=== PATIENT | male | born 1980 | race Caucasian/White ===

== ENCOUNTER 2017-11-07 02:18 | Emergency (ER) | payer SELFPAY ==
[2017-11-07 02:21] VITALS: BP 151/109; PULSE 77; RESP 12; TEMP 36.3; O2SAT 97; BMI 27.3
[2017-11-07] MEDS: Ondansetron ODT 4 MG Tablet 8 MG PO (02:50)
--- NOTE | 2017-11-07 03:31 | ED.VISSUMM ---
- ER Visit Summary Date of Service: 11/07/17 Chief Complaint: Vomiting History of Present Illness: The patient is a 37 M presents for vomiting ?3 prior to arrival. No hematemesis. States been drinking all day with a friend. Increased drinking recently. No SI. States he just wants to feel better so he can sleep. No diarrhea. No fevers. Physical Examination: General: Alert, cooperative, intoxicated. HEENT: Normocephalic, atraumatic. Moist mucosa membranes Neck: supple, nontender. Cardiovascular: Regular rate and rhythm, no murmurs Respiratory: Normal breath sounds, symmetric, no distress Abdomen: Soft, nontender, nondistended Extremities: Nontender, no edema, pulses intact ?4 Neuro: no focal neurological deficits. Test Results: [] Emergency Department Course and Treatment: Patient vital signs stable. Treated oral Zofran. No emesis. Given take-home pack of Zofran. Discharged home with mother. Treatment Plan: [] Disposition: Discharge Impression: 1. Nausea and vomiting 2. Alcohol intoxication This note was generated with [employer] dictation software. It may contain incorrect words, spelling, and punctuation that were not noted in review of the chart prior to signing ED Disposition - Plan for ED Patient: Disposition: Home or Assisted Living Chief Complaint: ETOH Intox Diagnosis: etoh intoxication, Vomiting Instructions: ED Alcohol Intoxication, ED Diet Vomiting Diarrhea Referrals: Reynaldo August MD [Primary Care Provider] - 3-5 Days
[2017-11-07 03:34] VITALS: BP 113/80; PULSE 66; RESP 16; O2SAT 95
[2017-11-07 03:36] VITALS: BP 113/80; PULSE 64; RESP 15; O2SAT 96
[2017-11-07] MEDS: Ondansetron ODT 4 MG Tablet PO (03:37)
== END 2017-11-07 03:39 | disposition home or self-care (01) ==
PROVIDERS: Emergency Provider Emergency Medicine; Family Provider Family Medicine; PCP Family Medicine
DX: R11.2 Nausea with vomiting, unspecified (principal); F10.129 Alcohol abuse with intoxication, unspecified; Y90.9 Presence of alcohol in blood, level not specified; Z72.0 Tobacco use
CPT/HCPCS: 99282

== ENCOUNTER 2018-06-28 11:14 | Emergency (ER) | payer SELFPAY ==
[2018-06-28 11:14] VITALS: BP 165/108; PULSE 67; RESP 16; TEMP 36.6; O2SAT 98; BMI 26.9
--- NOTE | 2018-06-28 11:46 | ED.DCSUM_ITS ---
- ER Visit Summary Date of Service: 06/28/18 Chief Complaint: Nausea and vomiting History of Present Illness: The patient is a 37 M A on no medications. Patient states that last night he had a couple drinks of [place] and coke. Said he felt fine. Last night he started having nausea and vomiting. Worse today. Really denies abdominal pain. No hematemesis. No melena. No fever. No history of pancreatitis in the past. States he is never gotten sick like this before with drinking alcohol. He does not think it is related. He denies any dysuria. Physical Examination: Male vital signs are stable afebrile. He does not look septic or toxic. HEENT exam pupils round reactive light. No signs of trauma. No facial droop. He does have dry mucous membranes. Neck nontender. Lungs clear to auscultation bilaterally. Heart regular rhythm no murmur rate about 70. Chest wall nontender. Abdomen is soft. Nontender. Nondistended. Normal bowel sounds. No signs of obstruction. No right upper or right lower quadrant tenderness. Patient is moving all 4 extremities. Neurovascular intact. Calves are nontender without edema or cords. Neurologically is awake and alert with no focal motor or sensory deficits. Normal motor strength to both hands and feet. 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 Normal speech and conversation. Test Results: Lipase equals 105. Emergency Department Course and Treatment: Clinically I suspect this is a viral syndrome. Patient will be treated with a liter of normal saline and IV Zofran. We will see if he can hold down p.o. fluids. Post treatment with IV fluids and Zofran patient is doing much much better on repeat exam at 1338. His repeat abdominal exam is nontender. He states he feels much better. He is comfortable being discharged home. Treatment Plan: Plenty of fluids and rest. Zofran as needed for nausea. Follow-up with your doctor if not improving or return to the ER feeling worse. [place] diet increase slowly. No alcohol for the next 72 hours. Disposition: Discharge Impression: Acute nausea and vomiting secondary to viral syndrome Acute dehydration This note was generated with [employer] software. It may contain incorrect words, spelling, and punctuation that were not noted in review of the chart prior to signing ED Disposition - Plan for ED Patient: Disposition: Home or Assisted Living Chief Complaint: Nausea/Vomiting Instructions: ED Nausea Vomiting Prescriptions: Ondansetron [Zofran Odt] 4 mg PO Q4H PRN PRN #7 tab.rapdis PRN Reason: Nausea Referrals: Nolan Sneed, [Primary Care Provider] - Additional Instructions: Plenty fluids and rest. Zofran as needed for nausea. Return if unable to keep fluids down or feeling worse otherwise follow-up your primary care physician as needed.
[2018-06-28] MEDS: Ondansetron 4 MG/2 ML Vial IV (11:50)
[2018-06-28] MEDS: 0.9% Normal Saline 1,000 ML 1000 ML IV (11:50)
[2018-06-28 12:15] LABS: Lipase 105 U/L (73-393)
--- NOTE | 2018-06-28 13:53 | ED.DEP ---
ED Disposition - Plan for ED Patient: Disposition: Home or Assisted Living Chief Complaint: Nausea/Vomiting Instructions: ED Nausea Vomiting Prescriptions: Ondansetron [Zofran Odt] 4 mg PO Q4H PRN PRN #7 tab.rapdis PRN Reason: Nausea Referrals: Nolan Sneed DO [Primary Care Provider] - Additional Instructions: Plenty fluids and rest. Zofran as needed for nausea. Return if unable to keep fluids down or feeling worse otherwise follow-up your primary care physician as needed.
[2018-06-28 14:02] VITALS: BP 144/87; PULSE 63; RESP 16; O2SAT 97
--- OUTSIDE RECORDS SUMMARY | 2018-08-21 23:25 | XMS RPT_ITS ---
:1980 Author Organization OHIP Care Team Providers Name Role Phone Reynaldo August Primary Care Unavailable David Strong Attending Unavailable Toby Renteria Attending Unavailable RODNEY BETHEA Primary Care Unavailable SAM NEVAREZ Attending Unavailable SELF, SELF Referring Unavailable BRITNI ZAMUDIO Attending Unavailable Stminh Miles, Emergency [facility] Attending Unavailable Nolan Sneed Primary Care Unavailable PROBLEMS PROBLEMS DATE TYPE CONDITION / CODE ATTENDING STATUS SOURCE 05/06/2018 Admitting Unknown / Amanda Miles Active [facility] Medical diagnosis UNK(Unknown) [facility] Repository 04/21/2018 Admitting Contact with and ROBB Tet[facility] Discovery Diagnosis (suspected) BRITNI [place] [facility] ([place]) exposure to 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 / Z20.2(ICD-10) 04/21/2018 Admitting Exposure to STD / SAM NEVAREZ Active [facility] Diagnosis 189735() B System ([place]) Repository 04/21/2018 Admitting Other / 0() GERISAM CRUZ Active [facility] Diagnosis B [place] Repository PROCEDURES PROCEDURES No Procedure Records FoundRESULTS RESULTS DISCHARGE INSTRUCTION Observed: 06/28/2018 Status: F Source: EDNA 4:37 PM [facility] REPOSITORY [facility] Medical Records Department [address] [place] [address] Discharge Instruction 06/28/18 1353 MR#: [id number] Acct: [id number] Name: MARLO QUINTERO Rep #: [id number] : 1980 37 From: Toby Renteria MD PCP: Nolan Sneed DO Status: DEP ER ED Disposition - Plan for ED Patient: Disposition: Home or Assisted Living Chief Complaint: Nausea/Vomiting Instructions: ED Nausea Vomiting Prescriptions: Ondansetron [Zofran Odt] 4 mg PO Q4H PRN PRN #7 tab.rapdis PRN Reason: Nausea Referrals: Nolan Sneed DO [Primary Care Provider] - Additional Instructions: Plenty fluids and rest. Zofran as needed for nausea. Return if unable to keep fluids down or feeling worse otherwise follow-up your primary care physician as needed. What to do if you have Problems For any increased pain, shortness of breath, bleeding, nausea or vomiting, chest pain, or any unexpected problems, contact your Primary Care Provider. Call [employer] [facility] ([phone]) or report to the closest Emergency Room. Call 911 if necessary. 06/28/18 1637 <Electronically signed by Toby Renteria MD> Date Toby Renteria MD Cosigner Signature (If Indicated): Date CC: Nolan Sneed DO; OUT OF TOWN DOCTOR EMERGENCY DEPARTMENT Observed: 06/28/2018 Status: F Source: [place] SUMMARY 4:37 PM [facility] REPOSITORY [facility] Medical Records Department [address] [place] [address] Emergency Department Summary 06/28/18 1143 MR#: [id number] Acct: [id number] Name: MARLO QUINTERO Rep #: [id number] : 1980 37 From: Toby Renteria MD PCP: Nolan Sneed DO Status: DEP ER - ER Visit Summary Date of Service: 06/28/18 Chief Complaint: Nausea and vomiting History of Present Illness: The patient is a 37 M A on no medications. Patient states that last night he had a couple drinks of [place] [employer] and coke. Said he felt fine. Last night he started having nausea and vomiting. Worse today. Really denies abdominal pain. No hematemesis. No melena. No fever. No history of pancreatitis in the past. States he is never gotten sick like this before with drinking alcohol. He does not think it is related. He denies any dysuria. Physical Examination: Male vital signs are stable afebrile. He does not look septic or toxic. HEENT exam pupils round reactive light. No signs of trauma. No facial droop. He does have dry mucous membranes. Neck nontender. Lungs clear to auscultation bilaterally. Heart regular rhythm no murmur rate about 70. Chest wall nontender. Abdomen is soft. Nontender. Nondistended. Normal bowel sounds. No signs of obstruction. No right upper or right lower quadrant tenderness. Patient is moving all 4 extremities. Neurovascular intact. Calves are nontender without edema or cords. Neurologically is awake and alert with no focal motor or sensory deficits. Normal motor strength to both hands and feet. 5 out of 5 primary products inspectors strength. Normal speech and conversation. Test Results: Lipase equals 105. Emergency Department Course and Treatment: Clinically I suspect this is a viral syndrome. Patient will be treated with a liter of normal saline and IV Zofran. We will see if he can hold down p.o. fluids. Post treatment with IV fluids and Zofran patient is doing much much better on repeat exam at 1338. His repeat abdominal exam is nontender. He states he feels much better. He is comfortable being discharged home. Treatment Plan: Plenty of fluids and rest. Zofran as needed for nausea. Follow-up with your doctor if not improving or return to the ER feeling worse. Stanley diet increase slowly. No alcohol for the next 72 hours. Disposition: Discharge Impression: Acute nausea and vomiting secondary to viral syndrome Acute dehydration This note was generated with [employer] dictation software. It may contain incorrect words, spelling, and punctuation that were not noted in review of the chart prior to signing ED Disposition - Plan for ED Patient: Disposition: Home or Assisted Living Chief Complaint: Nausea/Vomiting Instructions: ED Nausea Vomiting Prescriptions: Ondansetron [Zofran Odt] 4 mg PO Q4H PRN PRN #7 tab.rapdis PRN Reason: Nausea Referrals: Nolan Sneed DO [Primary Care Provider] - Additional Instructions: Plenty fluids and rest. Zofran as needed for nausea. Return if unable to keep fluids down or feeling worse otherwise follow-up your primary care physician as needed. What to do if you have Problems For any increased pain, shortness of breath, bleeding, nausea or vomiting, chest pain, or any unexpected problems, contact your Primary Care Provider. Call [employer] [facility] ([phone]) or report to the closest Emergency Room. Call 911 if necessary. 06/28/18 0017 <Electronically signed by Toby Renteria MD> Date Toby Renteria MD Cosigner Signature (If Indicated): Date CC: Nolan Sneed DO; OUT OF TOWN DOCTOR DISCHARGE INSTRUCTION Observed: 06/28/2018 Status: F Source: [place] 4:37 PM [facility] REPOSITORY [facility] Medical Records Department [address] [place] [address] [place] [address] Discharge Instruction 06/28/18 1146 MR#: [id number] Acct: [id number] Name: MARLO QUINTERO LISSY Rep #: [id number] : 1980 37 From: Toby Renteria MD PCP: Nolan Sneed DO Status: DEP ER ED Disposition - Plan for ED Patient: Disposition: Home or Assisted Living Chief Complaint: Nausea/Vomiting Instructions: ED Nausea Vomiting Prescriptions: Ondansetron [Zofran Odt] 4 mg PO Q4H PRN PRN #7 tab.rapdis PRN Reason: Nausea Referrals: Nolan Snede DO [Primary Care Provider] - Additional Instructions: Plenty fluids and rest. Zofran as needed for nausea. Return if unable to keep fluids down or feeling worse otherwise follow-up your primary care physician as needed. What to do if you have Problems For any increased pain, shortness of breath, bleeding, nausea or vomiting, chest pain, or any unexpected problems, contact your Primary Care Provider. Call [facility] ([phone]) or report to the closest Emergency Room. Call 911 if necessary. 06/28/18 4877 <Electronically signed by Toby Renteria MD> Date Toby Renteria MD Cosigner Signature (If Indicated): Date CC: Nolan Sneed DO; OUT OF TOWN DOCTOR LIPASE Collected: 06/28/2018 Status: F Source: [place] 11:50 AM [facility] REPOSITORY TYPE CODE TESTS RESULT OUT OF RANGE REFERENCE UNITS LAB L501.2450 73-393 U/L Normal LIPASE 105 Performed By: #### L501.2450 #### [facility] [address] [place], [address] ED DOC Observed: 05/06/2018 Status: UNK Source: [facility] 1:03 PM [facility] This is a preliminary report only, as the practitioner review and authentication has not occurred. ED DOC Observed: 05/06/2018 Status: UNK Source: [facility] 1:03 PM [facility] REPOSITORY PHYSICIAN ASSESSMENT RECORDS : FlexChartData Event Time: 05/06/2018 11:55 Status: Signed [facility] Marlo Quintero [[id number]] Attending Physician 37 / / 1980 Chart (V2b) Chart created at 05/06/2018 11:47 by Ciro Hanna Chart closed at 05/06/2018 12:38 Entry in Emergency Department at 05/06/2018 10:19, departure at 05/06/2018 13:03 Patient Name: Marlo Quintero Record Number: [id number] Date: 05/06/2018 11:47 Entered Department at: 05/06/2018 10:19 Patient Seen at: 05/06/2018 11:17 Historian: Patient PCP: DR. SNEED Chief Complaint:C/O EPIGASTRIC PAIN AND PALPITATIONS SINCE FRIDAY. Triage Note reviewed and Initial Vital Signs reviewed. Temperature: 97.6 F (36.4 C). Pulse: 74. Respiratory Rate: 18. Blood-pressure: 162/110. Oxygen Saturation: 98%. History of Present Illness: 37-Year-old male presents with complaints of left upper quadrant, midepigastric discomfort. According to patient he has been having mild achiness in that region ongoing for the past couple weeks. He has had several episodes of worsening severe discomfort. While he was having these severe episodes he felt quivering in his mid epigastric region going up into his [facility] PATIENT NAME: MARLO QUINTERO [address] [facility] [address] MEDICAL REC #: [id number] [place] [id number] EMERGENCY DEPARTMENT CHART EMERGENCY DEPARTMENT PHYSICIAN chest. Since he is never had problems like this in the past he came in for evaluation. He is not having any severe pain at this time. He has had no other nausea or vomiting. He has had radiation of the discomfort going to his chest but nothing to his arm. No other shortness of breath or difficulty breathing. He was not lightheaded, dizzy or weak. He has not tried using anything help alleviate discomfort. He has not seen a physician for this problem yet. Cannot recall anything that makes the discomfort worse. States it gets worse on its own and then was eases up over a couple minutes. He has seen no blood in his stools or dark tarry stools. Denied any urinary symptoms. Review of Systems. Constitutional: negative for Chills or Fever Eyes: negative for Eye Pain Ear/Nose/Throat: negative for Earache, Congestion or Sore Throat Cardio-Vascular: negative for Palpitations Skin: negative for Rash Respiratory: negative for Cough or Dyspnea GI: as noted in the HPI : negative for Dysuria, Frequency or Urgency Musculo-Skeletal: negative for Back Pain or Neck Pain Neurological: negative for Headache, Numbness or Weakness Psychological: negative for Stress Hem/Endo: negative for Bleeding, Polyuria or Bruising Immunology: negative for Joint Pain Past History, Medications, Allergies, Social History and Family History reviewed in nurses note. Medications: Reviewed RN Note. Allergies: Reviewed RN Note No Known Allergies Social History: Reviewed RN Note. Tobacco: Smoking, Every day, 1 per day. Alcohol: Moderate. Recreational Drugs: None. Family History: Reviewed RN Note Physical Examination: General: Alert and Well Developed; Well-developed, well-nourished male. He is awake and alert to person, place and time. Vital signs and [facility] PATIENT NAME: MARLO QUINTERO [facility] [address] MEDICAL REC #: [id number] [place] [address] EMERGENCY DEPARTMENT CHART EMERGENCY DEPARTMENT PHYSICIAN I interpret were stable blood pressure 162 systolic. Pulse rate 74. Respiratory rate 18. 98% saturation on room air. Temperature is 97.6. HEENT: Normal ENT inspection. Head: Atraumatic. Eyes: Lids Normal; PERRL; EOMI. Ear: Normal auricle, Normal external aud. canal, Normal Tympanic Membranes. Nose: Normal inspection, Normal mucose. Oropharynx / Throat: Normal Pharynx, Moist mucous membranes. Sclera nonicteric.. Neck: No Lymphadenopathy and Supple Respiratory: No Resp Distress and Normal Breath Sounds Cardio-Vascular: No murmur and RRR Abdomen: Mild discomfort noted to the midepigastric and left upper quadrant. No other rebound or guarding. There is no masses noted. Bowel sounds are normal and active. Clinically, he did not have a surgical abdomen. Back: No CVA tenderness and Non-tender Extremity: No edema and Normal Equal pulses; pulses equal upper/ lower extremities. equal left and right sides. Full range of motion of all joints. No deformities were noted. No cyanosis, clubbing or edema noted. Neurological: Alert, Oriented X3, Normal Sensation, No Gross Weakness, Speech Normal, Normal DTRs and 5/5 UE/LE Strength Skin: No rash, No Petechiae, Warm and Dry Psychological: Mood/Affect Normal and Normal Memory/Judgment BMP, information as of 05/06/2018, 10:28 am 138 --------+--------+--------andlt; 101* Anion Gap = 8 3.8 BUN/CREA: 13; CALCIUM TOTAL: 9.0 Mg/Dl CBC W/DIFF, information as of 05/06/2018, 10:32 am 91.2 / 16.7 / 8.8 andgt;------andlt; 204 / 47.5 / N:66.8 BASO ABS: 0.00 K/Cu Mm; BASOPHIL %: 0.5 %; EOS ABS: 0.10 K/Cu Mm; EOSINOPHIL %: 1.4 %; IMMATR GRAN ABS: 0.10 K/Cu Mm; IMMATURE GRAN %: 1.0 %; LYMPH %: 21.7 %; LYMPH ABS: 1.90 K/Cu Mm; MCHC: 35.2 Gm/Dl; MONO ABS: 0.80 K/Cu Mm; MONOCYTE %: 8.6 %; MPV: 10.2; NEUTROPHIL ABS: 5.90 K/Cu Mm; NRBC: 0.0 %; RBC: 5.21 M/Cu Mm; RDW: 11.6 [facility] PATIENT NAME: MARLO QUINTERO E [address] [facility] [address] MEDICAL REC #: [id number] [place] [address] EMERGENCY DEPARTMENT CHART EMERGENCY DEPARTMENT PHYSICIAN TROPONIN I POC, information as of 05/06/2018, 10:36 am POC Trop-I: 0.00 LIPASE, information as of 05/06/2018, 10:32 am LIPASE: 123 U/L LIVER, information as of 05/06/2018, 10:32 am A/G RATIO: 1.1; ALBUMIN: 3.9 Gm/Dl; ALK PHOS: 77 U/L; BILI DIRECT: 0.18 Mg/Dl; BILI TOTAL: 0.8 Mg/Dl; GLOBULIN: 3.6 Gm/Dl; SGOT (AST): 16 U/L; SGPT (ALT): 22 Iu/L; TP: 7.5 Gm/Dl Cardiogram: Interpreted by me. Interpretation: EKG that I interpret it shows a sinus rhythm without acute ST elevation or depression. There is no prolongation of MI interval or QRS complex. No old EKGs available for comparison Comparison: No old Cardiogram available for comparison Medical Decision Making On workup, EKG shows no acute changes with a troponin at 0. White count 8.8 with an Handamp;H of 16 and 47 and platelet count 204. Lipase is at 123 with a liver enzymes unremarkable. Sodium was at 138 with a potassium 3.8. Chloride was 105 with a CO2 of 25. BUN of 13 with a creatinine 1.03 and a glucose of 101. Patient was medicated with Pepcid as well as a Grasshopper. On reexam, patient states that his symptoms are doing better. Patient states that he has been taking doxycycline for exposure to chlamydia. Although the medication is not the underlying cause of his symptoms I do feel it is contributing to his problem. Patient will be taken off the doxycycline and given treatment here with both ceftriaxone as well as Zithromax. Patient will be discharged home, I will place him on omeprazole. He is advised about dietary restrictions. Patient will require further outpatient testing and is being referred to gastroenterology for follow-up. Advised to return for worsening symptoms. Patient discharged home stable condition [facility] PATIENT NAME: MARLO QUINTEROgracia Mcbride MEDICAL REC #: [id number] [place] [address] EMERGENCY DEPARTMENT CHART EMERGENCY DEPARTMENT PHYSICIAN Additional Information: Discussed Results, Diagnosis and Follow-Up with Patient. Prescription given (Omeprazole). Clinical Impression: 1. Abdominal pain-cause to be determined 2. Partially treated chlamydia infection Disposition: Discharged *Home. Condition: Stable MSE completed. I was the primary ED attending.. : Discharge Report Event Time: 05/06/2018 12:39 ===DISCHARGE REPORT=== : FlexChartData Event Time: 05/06/2018 11:55 : Discharge Report Event Time: 05/06/2018 12:39 Status: Draft Reasons to Return to the ER: You must return to the ER for any new, worsening or changing symptoms, or if you feel more ill or sick in any way. This is the most important thing to remember. Follow-up: The care you received in the ER was given on an emergency basis only, and it is often not possible to completely treat or diagnose a problem in a single ER visit. You must see your follow-up doctor for a recheck within a week unless you receive instructions with a different timeframe for follow-up. Please follow all your discharge instructions. Medications: [facility] PATIENT NAME: MARLO QUINTERO [address] MEDICAL REC #: [id number] [place] [address] EMERGENCY DEPARTMENT CHART EMERGENCY DEPARTMENT PHYSICIAN Unless the ER doctor tells you differently, you should take all your regular medications and any new medications prescribed today. Because it is not possible for the ER doctor to review all of your medication side effects or interactions, you must review possible side effects and interactions with your pharmacist when you get your prescriptions filled. EKG and Radiology Results: A tape coater or radiologist will review any EKG or radiology results provided by the ER doctor. We will contact you if the results in the final EKG or radiology reports require a change in treatment. Culture Results: Cultures may have been ordered during your ER visit. We will contact you if the culture results require a change in treatment. Referrals: Most referrals to specialists come from the on-call list You should make your regular doctor aware of any referrals before you schedule the appointment so that they are aware and can make suggestions DIAGNOSIS: Abdominal pain-cause to be determined, Partially treated chlamydia infection INSTRUCTIONS: Avoid spicy foods, alcohol, caffeine, nicotine, aspirin/anti-inflammatories. You stomach medication as directed. Follow-up with assessment expert for further outpatient treatment. Return for worsening symptoms. UNLESS THE ER DOCTOR GIVES YOU OTHER INSTRUCTIONS, YOU MUST SEE YOUR FOLLOW-UP DOCTOR WITHIN [address] [facility] PATIENT NAME: MARLO QUINTERO [address] [facility] [address] MEDICAL REC #: [id number] [place] [address] EMERGENCY DEPARTMENT CHART EMERGENCY DEPARTMENT PHYSICIAN YOU MUST RETURN TO THE ER RIGHT AWAY FOR ANY OF THE FOLLOWING:Increasing painChange in the location of the painNew or increasing fever or chillsNew or increasing constipation or difficulty urinatingNew or increasing abdominal swelling or bloatingBlood appears in the stool, vomit or urineNew or increasing vomiting or diarrhea.New or increasing weakness or dizzinessEarly appendix infection is always a possibility and you must return if the pain moves to the lower right side of your abdomen REFERRAL Suze Garcia MD (Gastroenterology), , fax: Please call the above number to schedule a follow-up appointment. Alena ([facility]) , Address: [address] [place] [address] [place] [address], , fax: Please call the above number to schedule a follow-up appointment. 2-3 days MEDICATIONS We have given you these prescriptions that you must fill and start taking: Prilosec 20 mg capsule,delayed release, count:21, Dose =1 tab, count:21,21 days, count:21, daily, count:21 COMMENTS: Patient Satisfaction: Within the first few days after your visit, you will receive an email and/or phone call regarding your visit. We value your feedback, and would appreciate it if you would take the time to complete this short survey. If you receive a call, it will be between 6p and 8p. [facility] PATIENT NAME: MARLO QUINTERO [address] MEDICAL REC #: [id number] [place] [id number] EMERGENCY DEPARTMENT CHART EMERGENCY DEPARTMENT PHYSICIAN My signature below indicates that I have received and understand the oral instructions regarding my medical problem. I also acknowledge receipt of this written instruction sheet including a list of major tests and procedures ordered during my visit. I will arrange for follow-up care as indicated by these instructions and referrals. This signed original will be kept in my medical record. Your signature below indicates consent for Case Management to contact [facility] in an effort to meet your ongoing healthcare needs. This will allow forcontinuity of care once you leave the Emergency Department. This exchange of informationwill include, but not be limited to, disclosure of your patient information and possible release of records. [employer] Patient: MARLO QUINTERO Sex: M : 1980 Age: 37 yr Account No: [id number] Registration Date: :05/06/2018 Address: [address] [place] [address] Address: [place] [address] REGISTRATION ED Number: [id number] Marital Status: X Financial Class: SELF TRIAGE Priority: 3 - Urgent Complaint: Palpitations Complaint: Epigastric Pain Stated Complaint: C/O EPIGASTRIC PAIN AND PALPITATIONS SINCE FRIDAY. [facility] PATIENT NAME: MARLO QUINTERO [address] [facility] [address] MEDICAL REC #: [id number] [place] [address] EMERGENCY DEPARTMENT CHART EMERGENCY DEPARTMENT PHYSICIAN Arrival Date: 05/06/2018 10:19 Triage Date: 05/06/2018 10:21 Mode of Arrival: *Privately Owned Vehicle WC: N Language: Lao Transport: Ambulatory/Walk In BED C27 In: 05/06/2018 11:07:23 05/06/2018 11:07:23 ARM C27 (Removed From) Out: 05/06/2018 13:03:54 05/06/2018 13:03:54 MCS PROVIDERS MD Ciro Belleza Provider Contact: 05/06/2018 11:16:53 CHASITY End: SELAM BANEGAS Provider Contact: 05/06/2018 11:25:49 MCS End: TRIAGE HISTORY ALLERGIES Allergic To: No Known Allergies 05/06/2018 10:27 ARM CURRENT MEDS Name: None 05/06/2018 12:45 MCS ILLNESS Illness: HOCM 05/06/2018 10:27 ARM PAST SURGERY HIST Surgery: BRAIN -REMOVAL OF BLOOD CLOT FROM TRAUMA 05/06/2018 10:27 ARM PAST SOCIAL HIST [facility] PATIENT NAME: MARLO QUINTERO [address] [facility] [address] MEDICAL REC #: [id number] [place] [address] EMERGENCY DEPARTMENT CHART EMERGENCY DEPARTMENT PHYSICIAN Social History: Lives alone 05/06/2018 10:27 ARM Social History: Recreational Drugs - None 05/06/2018 10:27 ARM Social History: Smoker-1 PPD 05/06/2018 10:27 ARM Social History: Alcohol - Frequent-4 BEERS /day 05/06/2018 10:27 ARM Social History: Denies Domestic Violence 05/06/2018 10:27 ARM Social History: Denies thoughts of self harm. 05/06/2018 10:27 ARM Social History: Have you traveled in the past month? Where DENIES 05/06/2018 10:27 ARM IMMUNIZATIONS Immunization: Flu Vaccine-no 05/06/2018 12:45 MCS Immunization: Pneumonia Vaccine-no 05/06/2018 12:45 MCS NURSING ASSESSMENT ASSESSMENT NOTES 05/06/2018 10:49 SEE TRIAGTE NOTE. MSPSINTACT. C/O LEFT SIDED CHEST DISCOMFORT,EPIGASTRIC REGION,WHICH STARTED OPN SUDNAY. PT STATING INCREASE IN DISCOMFORT AFTER EATING. LUNGS CT.A BSX4 A BD SOFT NONTENDER OT PALP. SKIN WARM PINKLN DRY CAP REFILL andlt;2 SECS. 05/06/2018 13:00 MCS TREATMENT 05/06/2018 11:00 Staff/ Patient Interaction - Side rails up X2 and call light placed within reach. 05/06/2018 13:01 MCS 05/06/2018 11:00 Staff/ Patient Interaction - Call [facility] PATIENT NAME: MARLO QUINTERO [address] [facility] [address] MEDICAL REC #: [id number] [place] [address] EMERGENCY DEPARTMENT CHART EMERGENCY DEPARTMENT PHYSICIAN light placed within reach. 05/06/2018 13:01 MCS 05/06/2018 11:10 Patient Interaction - Mail Superintendent/ Pulse ox/ BP cuff applied 05/06/2018 13:01 MCS 05/06/2018 11:10 Primary DOC Guide - D. Psychosocial Assessment 05/06/2018 13:01 [place] Over the Last 2 weeks, how often have you had little interest or pleasure in doing things (0) Not at All Is Psychosocial Assessment Score 3 or more? If score is 3 or more please consult ED Navigator! No Total Psychosocial Assessment Score 0 Over the last 2 weeks, how often have you been feeling down, depressed or hopeless (0) Not at All 05/06/2018 11:10 Patient Interaction - Name Band on Pt 05/06/2018 13:01 [place] 05/06/2018 11:10 Staff/ Patient Interaction - Introduced self and assessed patients needs. 05/06/2018 13:01 [place] 05/06/2018 11:20 Primary DOC Guide - A. 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 TB Screening - Persistent Cough More Than 3 Weeks No TB Screening - Night Sweats No TB Screening All Negative Latex Allergy Screen All Negative Travel History - Traveled outside of the state in the last 30 days No Travel History - Had contact with a person who has traveled outside the state in the last 30 days No 05/06/2018 11:59 POC testing results and critical values - POC Troponin 0.00 on ED instrument 05/06/2018 11:59 SPY 05/06/2018 13:01 Admit/Discharge - *Discharge instructions/tests andamp; procedures/med list reviewed and provided; prescriptions given to caregiver 05/06/2018 13:[address] [facility] PATIENT NAME: MARLO QUINTERO [address] [place] MEDICAL REC #: [id number] [place] [address] EMERGENCY DEPARTMENT CHART EMERGENCY DEPARTMENT PHYSICIAN 05/06/2018 13:01 Admit/Discharge - Ambulated with steady gait home 05/06/2018 13:01 MCS 05/06/2018 13:01 Admit/Discharge - Discharge information reviewed with family 05/06/2018 13:01 [place] 05/06/2018 13:01 Admit/Discharge - Discharge prescriptions given to patient 05/06/2018 13:01 MCS MEDICATIONS IV IV Fluid: B 05/06/2018 11:20 05/06/2018 13:03 MCS Line #: 1 Fluid: Saline Lock Rate: ml/hr Location: antecubital fossa left Ndl Gauge: 20 # Attempts: 1 IV Fluid: E 05/06/2018 13:03 05/06/2018 13:03 MCS Line #: 1 Rate: ml/hr Location: antecubital fossa left Ndl Gauge: 20 # Attempts: 1 Notes: IV CATH REMOVEDINTAC.T I AND O VITALS VS-ROUTINE Time: 05/06/2018 10:21 B/P: 162/110 - Left Upper Arm - Lying - Machine Pulse: 74 - Monitor Resp: 18 Sa02: 98 Room Air Temp: 97.60 F - Oral 05/06/2018 10:27 ARM VS-Pain Time: 05/06/2018 10:21 Pain Level: 4 05/06/2018 10:27 ARM VS-GCS Time: 05/06/2018 10:21 Visual: 4 Verbal: 5 Motor: 6 GCS Total: 15 05/06/2018 10:27 ARM VS-HT/WT Time: 05/06/2018 10:21 Ht: 177.[address] [facility] PATIENT NAME: MARLO QUINTERO [address] [place] MEDICAL REC #: [id number] [place] [address] EMERGENCY DEPARTMENT CHART EMERGENCY DEPARTMENT PHYSICIAN Weight: 81.7 kg Stated 05/06/2018 10:27 ARM VS-Visual Time: 05/06/2018 10:21 05/06/2018 10:27 ARM VS-FHT Time: 05/06/2018 10:21 05/06/2018 10:27 ARM VS-Notes Time: 05/06/2018 10:21 MAP 132 05/06/2018 10:27 ARM VS-ROUTINE Time: 05/06/2018 12:44 B/P: 133/85 - Left Upper Arm - - Machine Pulse: 60 - Mail Superintendent Resp: 18 Sa02: 99 Room Air 05/06/2018 12:44 MCS VS-Pain Time: 05/06/2018 12:44 Pain Level: 0 05/06/2018 12:44 MCS VS-GCS Time: 05/06/2018 12:44 Visual: 4 Verbal: 5 Motor: 6 GCS Total: 15 05/06/2018 12:44 MCS VS-HT/WT Time: 05/06/2018 12:44 05/06/2018 12:44 MCS VS-Visual Time: 05/06/2018 12:44 05/06/2018 12:44 MCS VS-FHT Time: 05/06/2018 12:44 05/06/2018 12:44 MCS VS-Notes Time: 05/06/2018 12:44 MAP 104 05/06/2018 12:44 MCS ORDERS Discharge patient 05/06/2018 12:42 N/A Ordered: 05/06/2018 12:39 By . Other Reviewed: 05/06/2018 12:42 By . Other Rocephin (IM)(250mg) DOSE: 250 mg IM 05/06/2018 12:58 N/A Ordered: 05/06/2018 12:35 By Ciro Hanna Completed Time: 05/06/2018 12:58 By Ciro Hanna Noted Time: 05/06/2018 12:44 MCS Zithromax (PO)*(250mg) DOSE: 1000 mg PO 05/06/2018 12:58 N/A Ordered: 05/06/2018 12:35 By Ciro Hanna Completed Time: 05/06/2018 12:58 By Ciro Hanna Noted Time: 05/06/2018 12:44 MCS RABBIT BREEDER ORDER: LIVER 05/06/2018 12:[address] [facility] PATIENT NAME: MARLO QUINTERO [address] [place] MEDICAL REC #: [id number] [place] [address] EMERGENCY DEPARTMENT CHART EMERGENCY DEPARTMENT PHYSICIAN Ordered: 05/06/2018 12:13 Completed Time: 05/06/2018 12:13 Results Time: 05/06/2018 12:13 RABBIT BREEDER ORDER: LIPA 05/06/2018 12:13 None Ordered: 05/06/2018 12:13 Completed Time: 05/06/2018 12:13 Results Time: 05/06/2018 12:13 Grasshopper (PO)* DOSE: 60 ml PO 05/06/2018 12:31 N/A Ordered: 05/06/2018 11:38 By Ciro Hanna Completed Time: 05/06/2018 12:30 By Ciro Hanna Noted Time: 05/06/2018 12:16 MCS Pepcid (IV)(20mg/2ml) DOSE: 20 mg IV 05/06/2018 12:31 N/A Ordered: 05/06/2018 11:38 By Ciro Hanna Completed Time: 05/06/2018 12:30 By Ciro Hanna Noted Time: 05/06/2018 12:16 MCS Lab: Add On Test (excluding POC tests) 05/06/2018 12:31 N/A Ordered: 05/06/2018 11:38 By Ciro Hanna Completed Time: 05/06/2018 12:30 By Ciro Hanna Question: Test to be added: Answer: liver panel, lipase RABBIT BREEDER ORDER: GFRP 05/06/2018 10:57 None Ordered: 05/06/2018 10:57 Completed Time: 05/06/2018 10:57 Results Time: 05/06/2018 12:13 RABBIT BREEDER ORDER: POCTROP 05/06/2018 10:52 None Ordered: 05/06/2018 10:52 Completed Time: 05/06/2018 10:52 Results Time: 05/06/2018 10:51 EKG and most recent EKG 05/06/2018 10:33 N/A Ordered: 05/06/2018 10:27 By Protocol Completed Time: 05/06/2018 10:23 By Protocol Noted Time: 05/06/2018 10:[address] [facility] PATIENT NAME: MARLO QUINTERO [address] [place] MEDICAL REC #: [id number] [place] [address] EMERGENCY DEPARTMENT CHART EMERGENCY DEPARTMENT PHYSICIAN O2 by cannula at 2L if SAT andlt;= 91% 05/06/2018 11:15 N/A Ordered: 05/06/2018 10:27 By Protocol Completed Time: 05/06/2018 11:15 By Protocol POC troponin 05/06/2018 12:01 N/A Ordered: 05/06/2018 10:27 By Protocol Completed Time: 05/06/2018 10:50 By Protocol Noted Time: 05/06/2018 10:33 SOILA BMP 05/06/2018 10:57 N/A Ordered: 05/06/2018 10:27 By Protocol Completed Time: 05/06/2018 10:57 By Protocol Noted Time: 05/06/2018 10:33 SOILA Results Time: 05/06/2018 12:13 CBC with diff 05/06/2018 10:46 N/A Ordered: 05/06/2018 10:27 By Protocol Completed Time: 05/06/2018 10:46 By Protocol Noted Time: 05/06/2018 10:33 SOILA Results Time: 05/06/2018 11:51 DISCHARGE Diagnosis: Abdominal pain-cause to be determined, Partially treated chlamydia infection 05/06/2018 12:39 Disposition: Time: 05/06/2018 12:39 Discharge Time: 05/06/2018 13:03 Type: Discharge Condition: Stable for admission/discharge/transfer after emergency evaluation/treatment Category: *NOT APPLICABLE Referral: 05/06/2018 12:39 Admit Physician: . Other PRESCRIPTIONS Prilosec 20 mg capsule,delayed release 05/06/2018 12:39 SI ta qd for 21 days Dispense: 21 / Refills: [facility] PATIENT NAME: MARLO QUINTERO [address] [place] MEDICAL REC #: [id number] [place] [address] EMERGENCY DEPARTMENT CHART EMERGENCY DEPARTMENT PHYSICIAN CHARGES SIGNATURE Ciro GORDON [facility] PATIENT NAME: MARLO QUINTERO [facility] [address] [place] MEDICAL REC #: [id number] [place] [address] EMERGENCY DEPARTMENT CHART EMERGENCY DEPARTMENT PHYSICIAN EKG Observed: 05/06/2018 Status: UNK Source: [facility] 12:06 PM [facility] REPOSITORY Procedure Date and Time: 05/06/18 1023 Test Reason : STAT Blood Pressure : / mmHG Vent. Rate : 069 BPM Atrial Rate : 069 BPM P-R Int : 136 ms QRS Dur : 086 ms QT Int : 398 ms P-R-T Axes : 043 054 005 degrees QTc Int : 426 ms Normal sinus rhythm Normal ECG No previous ECGs available Confirmed by SCOTT BRADLEY A. ([id number]) on 05/06/2018 11:12:34 PM Referred By: Emergency Stk Cnty Confirmed By:Mallika BRADLEY M.D.FACC Moris DDandT: 05/06/18 1023 TDandT: [facility] PATIENT NAME: MARLO QUINTERO [facility] [address] [place] MEDICAL REC #: [id number] [place] [address] ADMIT DATE: DISCHARGE DATE: 05/06/18 ATTENDING PHY: Ciro Hanna MD ELECTROCARDIOGRAM REPORT CLB cc: [facility] PATIENT NAME: MARLO QUINTERO [facility] [address] [place] MEDICAL REC #: [id number] [place] [address] ADMIT DATE: DISCHARGE DATE: 05/06/18 ATTENDING PHY: Ciro Hanna MD ELECTROCARDIOGRAM REPORT TROPONIN I POC Collected: 05/06/2018 Status: F Source: [facility] 10:36 AM [facility] REPOSITORY TYPE CODE TESTS RESULT OUT OF RANGE REFERENCE UNITS LAB L550.69662 0.0-0.06 NG/ML Normal TROPONIN I POC 0.00 Result Comment: 0.0 - 0.06 NG/ML - NON- DIAGNOSTIC (REFERENCE RANGE) 0.07 - 0.59 NG/ML - INDETERMINATE Greater than or equal to 0.6 NG/ML - INDICATIVE OF MYOCARDIAL DAMAGE CBC W/DIFF Collected: 05/06/2018 Status: F Source: [facility] 10:32 AM [facility] REPOSITORY Order Comment: [place]: TYPE CODE TESTS RESULT OUT OF RANGE REFERENCE UNITS LAB L200.05177 4.5-11.0 K/CU MM WBC Normal 8.8 LAB L200.63067 4.50-6.00 M/CU MM RBC Normal 5.21 LAB L200.92533 13.5-17.5 G/DL HGB Normal 16.7 LAB L200.11016 41.0-53.0 % HCT Normal 47.5 LAB L200.31348 80.0-99.0 fl MCV Normal 91.2 LAB L200.54622 32.0-36.0 GM/DL MCHC Normal 35.2 LAB L200.66721 11-14.5 RDW Normal 11.6 LAB L200.16101 9.4-12.4 MPV Normal 10.2 LAB L200.88582 150-450 K/CU MM PLT Normal 204 LAB L200.91085 45-75 % NEUTROPHILS Normal % 66.8 LAB L200.84922 Less than 2 % IMMATURE Normal GRAN % 1.0 LAB L200.62211 20-40 % LYMPH % Normal 21.7 LAB L200.15221 2-10 % MONOCYTE % Normal 8.6 LAB L200.52623 0-5 % EOSINOPHIL Normal % 1.4 LAB L200.66811 0-2 % BASOPHIL % Normal 0.5 LAB L200.48170 2.0-8.3 K/CU MM NEUTROPHIL Normal ABS 5.90 LAB L200.14198 Less than 2 K/CU MM IMMATR GRAN Normal ABS 0.10 LAB L200.85707 0.9-4.4 K/CU MM LYMPH ABS Normal 1.90 LAB L200.87943 0.1-1.1 K/CU MM MONO ABS Normal 0.80 LAB L200.80570 0-0.5 K/CU MM EOS ABS Normal 0.10 LAB L200.59640 0-0.2 K/CU MM BASO ABS Normal 0.00 LAB L200.72287 Less than 1 % NRBC Normal 0.0 Performed By: #### L200.90489 #### [facility] [address] [place] [address] BMP Collected: 05/06/2018 Status: F Source: [facility] 10:32 AM [facility] REPOSITORY Order Comment: [place]: M TYPE CODE TESTS RESULT OUT OF RANGE REFERENCE UNITS LAB L500.61829 136-145 MMOL/L Normal NA 138 LAB L500.84383 3.5-5.1 MMOL/L Normal K 3.8 LAB L500.25451 98-107 MMOL/L Normal CL 105 LAB L500.64506 21-32 MMOL/L Normal CO2 25 LAB L500.88354 5-16 MMOL/L Normal AGAP 8 LAB L500.66478 70-100 MG/DL High GLU 101 Result Comment: 70-100- Normal Fasting; 100-125 Impaired Fasting; greater than 126 on more than one result- Diabetes. ADA guidelines. Results may be falsely elevated after the administration of Sulfapyridine. Results may be falsely depressed after the administration of Sulfasalazine. LAB L500.19766 7-26 MG/DL Normal BUN 13 LAB L500.79283 0.670-1.170 MG/DL Normal CREAT 1.030 Result Comment: Patients receiving either N-Acetylcysteine (NAC) or Metamizole prior to venipuncture, may have falsely depressed results. LAB L500.61423 15-24 Low BUN/CREA 13 LAB L500.36920 8.5-10.1 MG/DL Normal CALCIUM TOTAL 9.0 Performed By: #### L500.81547, L500.41564, L500.55794, L500.72377 #### [facility] [address] [place] [address] GFR EST Collected: 05/06/2018 Status: F Source: [facility] 10:32 AM [facility] REPOSITORY Order Comment: [place]: M TYPE CODE TESTS RESULT OUT OF RANGE REFERENCE UNITS LAB L500.95133 ML/MIN Normal IF non-AFR Greater than AMER 60 LAB L500.75622 ML/MIN Normal IF Greater than AMER 60 Performed By: #### L500.20541, L500.56801, L500.04106, L500.06171 #### [facility] [address] [place] [address] LIVER Collected: 05/06/2018 Status: F Source: [facility] 10:32 AM [facility] REPOSITORY Order Comment: [place]: M TYPE CODE TESTS RESULT OUT OF RANGE REFERENCE UNITS LAB L500.13772 6.0-8.5 GM/DL TP Normal 7.5 LAB L500.73870 3.2-5.0 GM/DL Normal ALBUMIN 3.9 LAB L500.44609 2.2-4.2 GM/DL Normal GLOBULIN 3.6 LAB L500.76348 0.8-2.0 Normal A/G RATIO 1.1 LAB L500.76911 0.2-1.0 MG/DL Normal BILI TOTAL 0.8 LAB L500.17696 0.00-0.20 MG/DL Normal BILI DIRECT 0.18 LAB L500.48935 8-34 U/L Normal SGOT (AST) 16 Result Comment: RESULTS MAY BE FALSELY DEPRESSED AFTER THE ADMINISTRATION OF SULFASALAZINE AND/OR SULFAPYRIDINE. LAB L500.37889 13-61 IU/L Normal SGPT (ALT) 22 Result Comment: RESULTS MAY BE FALSELY DEPRESSED AFTER THE ADMINISTRATION OF SULFASALAZINE AND/OR SULFAPYRIDINE. LAB L500.48318 45-117 U/L Normal ALK PHOS 77 Performed By: #### L500.67884, L500.39482, L500.20371, L500.95317 #### [facility] [address] [place] [address] LIPASE Collected: 05/06/2018 Status: F Source: [facility] 10:32 AM [facility] REPOSITORY Order Comment: [place]: M TYPE CODE TESTS RESULT OUT OF RANGE REFERENCE UNITS LAB L500.57777 73-393 U/L Normal LIPASE 123 Performed By: #### L500.15623, L500.44135, L500.16445, L500.64349 #### [facility] [address] [place] [address] EMERGENCY DEPARTMENT Observed: 11/07/2017 Status: F Source: EDNA SUMMARY 3:33 AM [facility] REPOSITORY [facility] Medical Records Department [address] [place] [address] Emergency Department Summary 11/07/17 0331 MR#: [id number] Acct: [id number] Name: MARLO QUINTERO Rep #: [id number] : 1980 37 From: David Venegas PCP: Reynaldo August MD Status: REG ER - ER Visit Summary Date of Service: 11/07/17 Chief Complaint: Vomiting History of Present Illness: The patient is a 37 M presents for vomiting 3 prior to arrival. No hematemesis. States been drinking all day with a friend. Increased drinking recently. No SI. States he just wants to feel better so he can sleep. No diarrhea. No fevers. Physical Examination: General: Alert, cooperative, intoxicated. HEENT: Normocephalic, atraumatic. Moist mucosa membranes Neck: supple, nontender. Cardiovascular: Regular rate and rhythm, no murmurs Respiratory: Normal breath sounds, symmetric, no distress Abdomen: Soft, nontender, nondistended Extremities: Nontender, no edema, pulses intact 4 Neuro: no focal neurological deficits. Test Results: [] Emergency Department Course and Treatment: Patient vital signs stable. Treated oral Zofran. No emesis. Given take-home pack of Zofran. Discharged home with mother. Treatment Plan: [] Disposition: Discharge Impression: 1. Nausea and vomiting 2. Alcohol intoxication This note was generated with [employer] dictation software. It may contain incorrect words, spelling, and punctuation that were not noted in review of the chart prior to signing ED Disposition - Plan for ED Patient: Disposition: Home or Assisted Living Chief Complaint: ETOH Intox Diagnosis: etoh intoxication, Vomiting Instructions: ED Alcohol Intoxication, ED Diet Vomiting Diarrhea Referrals: Reynaldo uAgust MD [Primary Care Provider] - 3-5 Days What to do if you have Problems For any increased pain, shortness of breath, bleeding, nausea or vomiting, chest pain, or any unexpected problems, contact your Primary Care Provider. Call [facility] ([phone]) or report to the closest Emergency Room. Call 911 if necessary. 11/07/17 0333 <Electronically signed by David Venegas> Date David Wigginsigner Signature (If Indicated): Date CC: Reynaldo August MD ALLERGIES ALLERGIES DATE TYPE / CODE NAME / CODE REACTION SEVERITY SOURCE 06/28/2018 Drug iodine/F0060 Unknown Unknown [facility] Allergy/4160 07937([place] [id number](SNOMED ) Repository CT) 06/28/2018 Drug sotalol/F006 Other Unknown [facility] Allergy/4160 [id number]([place] [id number](SNOMED M) Repository CT) 06/28/2018 Drug venom-wasp/F Unknown Unknown [facility] Allergy/4160 [id number]([place] [id number](SNOMED NORM) Repository CT) ENCOUNTERS ENCOUNTERS ADMIT/DISCHARGE ACCOUNT NUMBER ADMITTING ENCOUNTER LOCATION SOURCE CLASS 06/28/2018/06/28/20 [id number] Emergency [place] ding:ED Repository 05/06/2018 [id number] Emergency [facility] Repository ng:H.ED 04/21/2018/04/21/20 [id number] Emergency [address] [place] [address] DRoom: System ([place]) [id number]: Repository E017 04/21/2018 [id number] Amb[facility] [place] [address] System ([place]) Repository 11/07/2017/11/08/19 [id number] Emergency [address] ding:ED Repository PAYERS PAYERS ENCOUNTER GUARANTOR PAYER SUBSCRIBER SOURCE 06/28/2018 [facility] [id number] Insurance:SELF PAY [place], [place] Number: Effective Repository [phone]: (330) Date:2018-06-28 [phone] () 05/06/2018 MARLO [facility] [id number] [place]: Effective 812[address]Jhr: (330) Date:SEE [phone] (HP) PATIENT/GUARANTORSEE PT/[place], [place] [address]DJ: 11/07/2017 Marlo Vasquez Primary NOT GIVENAL Yates Insurance:SELF PAY [place], [place] Number: Effective Repository [phone]: (330) Date:2017-11-07 [phone] ()
== END 2018-06-28 14:03 | disposition home or self-care (01) ==
LOC: ED 12:05
PROVIDERS: Emergency Provider Emergency Medicine; PCP Family Medicine
DX: B34.9 Viral infection, unspecified (principal); R11.2 Nausea with vomiting, unspecified; E86.0 Dehydration; Z72.0 Tobacco use
CPT/HCPCS: 83690; 96361; 96374; 99283; J7030; J2405

== ENCOUNTER 2018-08-22 10:48 | Emergency (ER) | payer SELFPAY ==
[2018-08-22 10:50] VITALS: PULSE 69; RESP 16; TEMP 37.2; O2SAT 98; BMI 26.5
--- NOTE | 2018-08-22 10:57 | EKG12_ITS ---
Test Reason : AFIB Blood Pressure : / mmHG Vent. Rate : 071 BPM Atrial Rate : 071 BPM P-R Int : 144 ms QRS Dur : 094 ms QT Int : 398 ms P-R-T Axes : 051 052 -09 degrees QTc Int : 432 ms Normal sinus rhythm with sinus arrhythmia T wave abnormality, consider inferior ischemia Abnormal ECG Confirmed by KALANI MCDONNELL, NAOMI ([id number]), fashion editor CHAMP PICKENS ([id number]) on 08/25/2018 2:20:22 PM Referred By: JULIETTE Confirmed By:NAOMI URIARTE MD
--- NOTE | 2018-08-22 10:57 | RAD_ITS ---
STUDY: X-RAY CHEST REASON FOR EXAM: Male, 38 years old. Chest pain TECHNIQUE: A single frontal view of the chest was obtained. COMPARISON: August 20, 2016 FINDINGS: Lines and tubes: None. Lungs: Adequately aerated. No focal airspace opacities. Pleura: No demonstrated abnormality. Mediastinum/cindy: Unremarkable. Cardiovascular: Normal size cardiac silhouette. Central vascularity unremarkable. Thoracic aorta unremarkable. Soft tissues: Unremarkable. Bones: Unremarkable. Upper abdomen: No demonstrated abnormality. RAD/Chest 1 View (Portable) IMPRESSION: No acute cardiopulmonary abnormalities. Electronically Signed: Gillian Escobar MD at 11:25 EST , Service support ,
--- NOTE | 2018-08-22 10:58 | ED.VISSUMM ---
- ER Visit Summary Date of Service: 08/22/18 Chief Complaint: Palpitations History of Present Illness: The patient is a 38 M who presents with palpitations. This started this morning. He felt like his mind was racing and then he felt a shock through his chest and the started feeling palpitations. He called EMS because of his symptoms. Currently he has no symptoms except he feels a gurgling and aching in his left upper quadrant. He has a history of this whenever he gets palpitations. He does have a history of atrial fibrillation and he has had electrical cardioversion in the past. He tried beta-blockers and blood thinning medications but he did not tolerate these who is currently not on any medications at this time. Physical Examination: Vital signs reviewed. HEENT exam unremarkable. Heart is regular rate and rhythm without murmurs. Lungs are clear to auscultation. Abdomen is soft and nontender. Extremities reveal no edema. Peripheral pulses are equal. Skin exam normal. Neurologic exam normal. Test Results: EKG is sinus rhythm with rate of 71. He has T wave inversions in leads III and aVF. This is unchanged from an EKG done in 2017. Laboratory studies are unremarkable except for glucose of 115. Chest x-ray normal Emergency Department Course and Treatment: Patient is asymptomatic except for this achiness in his left upper quadrant. I gave him a GI cocktail and he states this improved but he states he always feels that nothing is changed. He thinks he may need to work out more. Regardless he has had no symptoms here. He will be discharged to follow-up with his PCP Treatment Plan: [] Disposition: Discharge Impression: Palpitations This note was generated with [employer] dictation software. It may contain incorrect words, spelling, and punctuation that were not noted in review of the chart prior to signing ED Disposition - Plan for ED Patient: Chief Complaint: Palpitations Referrals: Nolan Sneed DO [Primary Care Provider] -
[2018-08-22 11:02] VITALS: O2SAT 98
[2018-08-22] MEDS: Mag Hydrox/Al Hydrox/Simeth 30 ML UDC PO (11:07)
[2018-08-22] MEDS: Aspirin 81 MG TAB.CHEW 324 MG PO (11:07)
[2018-08-22 11:22] LABS: Absolute Lymphocyte Count 1.49 X10^3/ul (0.83-4.51); Absolute Neutrophil Count 4.6 X10^3/uL (2.0-7.7); Basophil# 0.02 X10^3/uL; Basophil% 0.3 % (0-1); Eosinophil# 0.07 X10^3/uL; Hematocrit 46.5 % (40-54); Hemoglobin 16.6 g/dl (13.0-16.5); Lymphocyte # 1.49 X10^3/ul (4.0); Lymphocyte % 22.1 % (19-41); Mean Corp Hgb Conc 35.7 g/gl (32-36); Mean Corpuscular Hgb 32.4 pg (27.0-32.0); Mean Corpuscular Volume 90.8 fL (80-94); Mean Platelet Vol. 10.4 fl (6.2-12.0); Monocyte# 0.54 X10^3/uL; Neutrophil % 68.3 % (47-70); Platelet Count 196 K/mm3 (150-450); RBC Distribution Width CV 11.9 % (11.6-14.6); RBC Distribution Width SD 39.2 fl (35.1-43.9); Red Blood Count 5.12 M/mm3 (4.6-6.2); White Blood Count 6.7 K/mm3 (4.4-11.0)
[2018-08-22 11:24] LABS: POSITIVE COUNT NO; POSITIVE DIFFERENTIAL NO; POSITIVE MORPHOLOGY NO
[2018-08-22 11:44] LABS: Anion Gap 11 (5-15); BUN 9 mg/dL (7-18); BUN/Creat Ratio 7.6 RATIO (10-20); Calcium,Total 9.3 mg/dL (8.5-10.1); Chloride 106 mmol/L (98-107); Creatinine, Serum 1.19 mg/dL (0.70-1.30); EST Glomerular Filtration Rate 73 mL/min (>60); Est Glom Filt Rate - Afr Amer 88 mL/min (>60); Glucose 115 mg/dL (74-106); Potassium 3.9 mmol/L (3.5-5.1); Sodium Level 145 mmol/L (136-145)
--- NOTE | 2018-08-22 11:51 | ED.DEP ---
ED Disposition - Plan for ED Patient: Disposition: Home or Assisted Living Chief Complaint: Palpitations Instructions: ED Palpitations Referrals: Nolan Sneed DO [Primary Care Provider] -
[2018-08-22 12:06] VITALS: BP 118/74; PULSE 82; RESP 16; O2SAT 98
== END 2018-08-22 12:07 | disposition home or self-care (01) ==
PROVIDERS: Emergency Provider Emergency Medicine; PCP Family Medicine
DX: R00.2 Palpitations (principal); I48.91 Unspecified atrial fibrillation
CPT/HCPCS: 71045; 80048; 84484; 85025; 93005; 99285; A4216

== ENCOUNTER 2018-08-28 06:57 | Emergency (ER) | payer SELFPAY ==
[2018-08-28 06:58] VITALS: BP 167/104; PULSE 71; RESP 18; TEMP 36.3; O2SAT 98; BMI 27.2
[2018-08-28 07:03] VITALS: BP 167/104; PULSE 71; RESP 16; TEMP 36.3; O2SAT 98
--- NOTE | 2018-08-28 07:20 | ED.VISSUMM ---
- ER Visit Summary Date of Service: 08/28/18 Chief Complaint: Facial rash History of Present Illness: The patient is a 38 M presenting for evaluation secondary to facial rash. Patient reports that he started with a cold sore about 3 days ago. He tried to put some tea tree oil over it, but it ran down the side of his face. He reports that he started to have spreading of rash and [facility] and was placed on a antibiotic that starts with a C. Patient states that since then he has had significant worsening, increased pain and burning sensation. He denies any constitutional symptoms such as fever. He reports a significant amount of drainage from the wound. Review of systems otherwise negative. Physical Examination: Physical exam remarkable for facial skin exam. Patient has evidence of vesicles on the right side of his face starting in the corner of his mouth going down his chin ending at about his neck. There is a significant amount of weeping coming from this, as well as yellow crusting. Patient does not have significant lymphadenopathy. No trismus. Test Results: None indicated Emergency Department Course and Treatment: Patient presented secondary to a facial rash. This started with a cold sore, and has had a significant amount of spreading and now has yellow drainage and seepage. This potentially is a presentation of herpes labialis with a staphylococcal superinfection such as impetigo. Patient will be placed on topical antibiotics, namely Bactroban, oral antibiotics, namely Keflex, and Valtrex. Patient was instructed to follow-up with primary care. Disposition: Discharge Impression: 1. Herpes labialis with impetigo This note was generated with [employer] dictation software. It may contain incorrect words, spelling, and punctuation that were not noted in review of the chart prior to signing ED Disposition - Plan for ED Patient: Disposition: Home or Assisted Living Diagnosis: Herpes labialis, Impetigo Instructions: ED Impetigo Ch, ED Herpes Simplex Virus Type 1 Prescriptions: Cephalexin [Keflex] 500 mg PO Q6 #40 cap Valacyclovir HCl [Valtrex] 1,000 mg PO BID #10 tab Mupirocin [Bactroban] 1 applic TOPICAL TID #1 tube Referrals: Nolan Sneed DO [Primary Care Provider] - 3-5 Days Terry Monahan MD [NON-STAFF] -
== END 2018-08-28 07:34 | disposition home or self-care (01) ==
PROVIDERS: Emergency Provider Emergency Medicine; PCP Family Medicine
DX: B00.1 Herpesviral vesicular dermatitis (principal); L01.00 Impetigo, unspecified
CPT/HCPCS: 99282

== ENCOUNTER 2018-09-06 05:37 | Emergency (ER) | payer SELFPAY ==
[2018-09-06 05:38] VITALS: BP 146/90; PULSE 89; RESP 12; TEMP 36.9; O2SAT 98; BMI 26.3
--- NOTE | 2018-09-06 05:43 | EKG12_ITS ---
Test Reason : PALPITATIONS Blood Pressure : / mmHG Vent. Rate : 081 BPM Atrial Rate : 081 BPM P-R Int : 148 ms QRS Dur : 096 ms QT Int : 402 ms P-R-T Axes : 064 074 002 degrees QTc Int : 466 ms Normal sinus rhythm Possible Lateral infarct , age undetermined Abnormal ECG Confirmed by KALANI MCDONNELL, NAOMI ([id number]), science editor CHAMP PICKENS ([id number]) on 09/08/2018 8:31:59 AM Referred By: YAHAIRA Confirmed By:NAOMI URIARTE MD
--- NOTE | 2018-09-06 05:55 | ED.VISSUMM ---
- ER Visit Summary Date of Service: 09/06/18 Chief Complaint: Palpitations History of Present Illness: The patient is a 38 M who presents with palpitations. It began when he woke this morning. It lasted about 20 minutes. Currently it has resolved. He states it is probably anxiety. He has had multiple ER visits for similar symptoms. He states he also had some gurgling in his left upper quadrant of his abdomen. This is also occurred with multiple prior similar episodes. He states that his mind was racing. He denies any pain. He does note that he drank a lot of caffeine last night. Physical Examination: Afebrile blood pressure 146/90 vitals otherwise normal Moist mucous membranes Heart regular rate and rhythm he does have a systolic murmur Lungs are clear to auscultation Abdomen soft Alert Test Results: EKG shows sinus rhythm at a rate of 81 with T wave inversions in leads III and aVF this is similar to prior EKGs. Emergency Department Course and Treatment: Patient has a history of multiple prior similar presentations. He has had normal laboratory studies on previous visits with similar presentation. Patient does believe this is anxiety. He notes that his mind was racing. He states previously with similar symptoms when he was treated with Ativan he had significant improvement. I discussed that given similar presentations with unremarkable lab work I did not think we needed to repeat blood work today and the patient is in agreement. He states that he feels he needs to be started on medication for anxiety. He was given Vistaril here and a prescription for the same. He was referred to a primary care physician. Understands to return for new or worsening symptoms and was discharged home. Treatment Plan: [] Disposition: Discharge Impression: Anxiety Palpitations This note was generated with [employer] dictation software. It may contain incorrect words, spelling, and punctuation that were not noted in review of the chart prior to signing ED Disposition - Plan for ED Patient: Referrals: Nolan Sneed DO [Primary Care Provider] -
--- NOTE | 2018-09-06 05:58 | ED.DCSUM_ITS ---
- ER Visit Summary Date of Service: 09/06/18 Chief Complaint: Palpitations History of Present Illness: The patient is a 38 M who presents with palpitations. It began when he woke this morning. It lasted about 20 minutes. Currently it has resolved. He states it is probably anxiety. He has had multiple ER visits for similar symptoms. He states he also had some gurgling in his left upper quadrant of his abdomen. This is also occurred with multiple prior similar episodes. He states that his mind was racing. He denies any pain. He does note that he drank a lot of caffeine last night. Physical Examination: Afebrile blood pressure 146/90 vitals otherwise normal Moist mucous membranes Heart regular rate and rhythm he does have a systolic murmur Lungs are clear to auscultation Abdomen soft Alert Test Results: EKG shows sinus rhythm at a rate of 81 with T wave inversions in leads III and aVF this is similar to prior EKGs. Emergency Department Course and Treatment: Patient has a history of multiple pr ior similar presentations. He has had normal laboratory studies on previous visits with similar presentation. Patient does believe this is anxiety. He notes that his mind was racing. He states previously with similar symptoms when he was treated with Ativan he had significant improvement. I discussed that given similar presentations with unremarkable lab work I did not think we needed to repeat blood work today and the patient is in agreement. He states that he feels he needs to be started on medication for anxiety. He was given Vistaril here and a prescription for the same. He was referred to a primary care physician. Understands to return for new or worsening symptoms and was discharged home. Treatment Plan: [] Disposition: Discharge Impression: Anxiety Palpitations This note was generated with [employer] dictation software. It may contain incorrect words, spelling, and punctuation that were not noted in review of the chart prior to signing ED Disposition - Plan for ED Patient: Referrals: Nolan Sneed DO [Primary Care Provider] -
--- NOTE | 2018-09-06 05:58 | ED.DEP ---
ED Disposition - Plan for ED Patient: Instructions: ED Palpitations, ED Panic Attack Prescriptions: hydrOXYzine pamoate capsule [Vistaril] 50 mg PO TID PRN PRN #30 cap PRN Reason: Anxiety Referrals: Emiliano Schwarz MD [STAFF PHYSICIAN] -
[2018-09-06 06:12] VITALS: BP 161/85; PULSE 89; RESP 16
[2018-09-06] MEDS: hydrOXYzine PAM 25 MG Capsule PO (06:12)
== END 2018-09-06 06:15 | disposition home or self-care (01) ==
LOC: ED 06:09
PROVIDERS: Emergency Provider Emergency Medicine; PCP Family Medicine
DX: F41.9 Anxiety disorder, unspecified (principal); R00.2 Palpitations; R01.1 Cardiac murmur, unspecified; Z86.79 Personal history of other diseases of the circulatory system; Z72.0 Tobacco use
CPT/HCPCS: 93005; 99284

== ENCOUNTER 2019-03-29 10:52 | Emergency (ER) | payer SELFPAY ==
[2019-03-29 10:56] VITALS: BP 147/95; PULSE 71; RESP 15; TEMP 36.7; O2SAT 97; BMI 25.8
--- NOTE | 2019-03-29 11:40 | EKG12_ITS ---
Test Reason : JW Blood Pressure : / mmHG Vent. Rate : 065 BPM Atrial Rate : 065 BPM P-R Int : 144 ms QRS Dur : 088 ms QT Int : 408 ms P-R-T Axes : 038 051 -11 degrees QTc Int : 424 ms Normal sinus rhythm Low Voltage QRS (Limb Leads) T wave abnormality, consider inferior ischemia Abnormal ECG Confirmed by ASPEN MCDONNELL, CHRISTIAN ([id number]), editor school photograph ORA BLANTON ([id number]) on 03/30/2019 11:41:27 AM Referred By: PALPS Confirmed By:CHRISTIAN LOUISE MD
--- NOTE | 2019-03-29 12:01 | ED.VIS.GEN ---
History of Present Illness Chief Complaint: Palpitations Onset: Today - 1-2 hrs HOT [employer] Context: Sudden Onset - just after placing a chew in his mouth Timing: Intermittent, Lasts - 30 min Quality: skipping, racing Location: chest Current Severity: gone Maximum Severity: Moderate Worsened by: nothing Relieved by: nothing in particular Associated Symptoms: no lightheadedness, presyncope, CP, sob, sweats, n/v Narrative: Patient is an alcoholic, he drinks daily for the past 2 years, anywhere from 5-12 bottles or cans of beer per day. His last drink was last night, although he admits to drinking a part of a beer this morning. He was doing this trying to get the palpitations to quit, he did not help. He felt like he was in A. fib, which he has been diagnosed with before. He states the last time he had these symptoms of atrial fibrillation was 8 months ago. He has had 2 different cardioversions in the past, once in the ER here remotely and once in [place], [place]. He was supposed to be on Coumadin and had another medication metoprolol, but he states he did not tolerate them so has discontinued them long ago. He does not see a call center operator locally. He felt like he was in A. fib earlier, lasted about 30 minutes now he feels better and back to normal. He denies doing any other drugs except for tobacco. - Past Medical History (1) Paroxysmal atrial fibrillation Status: Chronic (2) Alcoholism Status: Chronic (3) Hypertrophic cardiomyopathy Status: Chronic Past Medical History - Allergies and Home Meds Allergies/Adverse Reactions: Allergies iodine Allergy (Verified 03/29/19 11:00) Unknown venom-wasp [wasp venom] Allergy (Verified 03/29/19 11:00) Unknown sotalol Adverse Reaction (Verified 03/29/19 11:00) Other tightness in throat Primary Care Physician: Nolan Sneed DO [Primary Care Provider] - Surgical History: - - right sided brain surgery due to blood clot Lives: With Family Smoking Status: Current some day smoker Alcohol: Heavy Drugs: None - Family History Maternal Family History: Reports: No pertinent history Paternal Family History: Reports: No pertinent history Review of Systems General: Denies: Chills, Fever, Sweats Eyes: Denies: Visual changes - bilaterally, Diplopia ENT: Denies: Rhinorrhea, Sore throat Cardiovascular: Reports: Palpitations, Heart racing. Denies: Chest pain Respiratory: Denies: Dyspnea, Cough, Dyspnea on exertion Gastrointestinal: Denies: Abdominal pain, Nausea, Vomiting, Diarrhea, Melena, Hematochezia Genitourinary: Denies: Dysuria, Hematuria, Frequency Musculoskeletal: Denies: Back pain, Extremity Pain Skin: Denies: Rash, Wounds Neurological: Denies: Headache, Weakness, Numbness Physical Exam Vital Signs/Narrative: Vital Signs Temp Pulse Resp BP Pulse Ox 03/29/19 10:56 98.1 F 71 15 147/95 H 97 Inital Vital Signs reviewed: Yes General: Well nourished, Well developed, No Acute Distress Head: Normocephalic, Atraumatic Eyes: Perrl, EOMI ENT: Moist mucous membranes, No rhinorrhea Neck: Supple, Nontender, No JVD Cardiovascular: Regular rate, Regular rhythm, No murmurs, Normal S1, Normal S2 Respiratory: No distress, CTA bilaterally, Chest nontender Abdomen: Soft, Nontender, Nondistended, Normal bowel sounds Back: Nontender, Normal Inspection Extremities: Nontender, No edema. Negative for: Calf Tenderness Skin: Normal color, No rash, No Trauma Neurological: Alert, Oriented x3, Cranial nerves II-XII grossly intact, Normal Strength, Normal Sensation Psychological: Normal affect, Normal Mood Diagnostic/Tx/Re-eval Laboratory Results 03/29/19 03/29/19 11:35 11:35 WBC 6.4 RBC 4.99 Hgb 15.9 Hct 44.4 MCV 89.0 MCH 31.9 MCHC 35.8 RDW Std Deviation 36.2 RDW Coeff of Tereza 11.4 L Plt Count 175 MPV 10.8 Immature Gran % (Auto) 0.900 Neut % (Auto) 71.9 H Lymph % (Auto) 17.1 L [place] % (Auto) 8.0 Eos % (Auto) 1.6 Baso % (Auto) 0.5 Absolute Neuts (auto) 4.6 Absolute Lymphs (auto) 1.09 Nucleated RBC % 0 Sodium 145 Potassium 3.4 L Chloride 112 H Carbon Dioxide 25.0 Anion Gap 8 BUN 12 Creatinine 1.08 Estim Creat Clear Calc 92.74 Est GFR (MDRD) Af Amer 98 Est GFR (MDRD) Non-Af 81 BUN/Creatinine Ratio 11.1 Glucose 113 H Calcium 8.7 Troponin I < 0.015 - Rhythm Strip Rhythm Strip: Sinus Rhythm Rate: 65 Ectopy: None - EKG Initial EKG Interpretation: Sinus Rhythm, No Acute Injury Pattern - nml axis. nml EKG - Medical Decision Making Labs are unremarkable except for mild hypokalemia, he was given a dose of potassium. He had no recurrent symptoms while being monitored in the emergency department for several hours. He is asymptomatic at this time. Discussed with Dr. Zepeda who agrees with treating his potassium and having him follow-up in attempt to discontinue alcohol abuse. ED Disposition - Plan for ED Patient: Disposition: Home or Assisted Living Diagnosis: Palpitations, Alcohol abuse, Paroxysmal atrial fibrillation Instructions: Atrial Fibrillation Referrals: Nolan Sneed DO [Primary Care Provider] - Lalo Zepeda MD [STAFF PHYSICIAN] - (Call for appointment) Additional Instructions: Attempt to curb and eventually discontinue alcohol use, as it may prevent you from having runs of atrial fibrillation.
[2019-03-29 12:24] LABS: Absolute Lymphocyte Count 1.09 X10^3/uL (0.83-4.51); Absolute Neutrophil Count 4.6 X10^3/uL (2.0-7.7); Basophil# 0.03 X10^3/uL; Basophil% 0.5 % (0-1); Eosinophils% 1.6 % (0-5); Hematocrit 44.4 % (40-54); Hemoglobin 15.9 g/dL (13.0-16.5); Lymphocyte # 1.09 X10^3/ul (4.0); Lymphocyte % 17.1 % (19-41); Mean Corp Hgb Conc 35.8 g/dL (32-36); Mean Corpuscular Hgb 31.9 pg (27.0-32.0); Mean Platelet Vol. 10.8 fl (6.2-12.0); Monocyte# 0.51 X10^3/uL; NRBC Flagged by Analyzer 0 % (0-5); Neutrophil # 4.59 X10^3/uL (2.7-7.7); Neutrophil % 71.9 % (47-70); Platelet Count 175 K/mm3 (150-450); RBC Distribution Width CV 11.4 % (11.6-14.6); RBC Distribution Width SD 36.2 fl (35.1-43.9); Red Blood Count 4.99 M/mm3 (4.6-6.2); White Blood Count 6.4 K/mm3 (4.4-11.0)
[2019-03-29 12:25] VITALS: BP 133/85; PULSE 63
[2019-03-29 12:31] LABS: Anion Gap 8 (5-15); BUN 12 mg/dL (7-18); BUN/Creat Ratio 11.1 RATIO (10-20); Calcium,Total 8.7 mg/dL (8.5-10.1); Chloride 112 mmol/L (98-107); Creatinine, Serum 1.08 mg/dL (0.70-1.30); EST Glomerular Filtration Rate 81 mL/min (>60); Est Glom Filt Rate - Afr Amer 98 mL/min (>60); Estimated Creatinine Clearance 92.74 ml/min; Glucose 113 mg/dL (74-106); Potassium 3.4 mmol/L (3.5-5.1); Sodium Level 145 mmol/L (136-145)
[2019-03-29 14:12] VITALS: BP 127/92; PULSE 64; RESP 18; O2SAT 97
[2019-03-29 14:54] VITALS: BP 127/92; PULSE 61; RESP 17; O2SAT 97
--- NOTE | 2019-03-29 14:55 | ED.RN ---
IV DC'ED, CATHETER INTACT, SMALL GAUZE DRESSING PLACED. DISCHARGE INSTRUCTIONS GIVEN TO AND REVIEWED WITH PATIENT, PATIENT DENIES QUESTIONS OR CONCERNS AND VOICES UNDERSTANDING OF DISCHARGE INSTRUCTIONS. PT AMBULATES OUT OF ROOM WITHOUT DIFFICULTY.
== END 2019-03-29 14:56 | disposition home or self-care (01) ==
PROVIDERS: Emergency Provider Emergency Medicine; PCP Family Medicine
DX: R00.2 Palpitations (principal); F10.20 Alcohol dependence, uncomplicated; I48.0 Paroxysmal atrial fibrillation; E87.6 Hypokalemia; Z91.14 Patient's other noncompliance with medication regimen; I42.2 Other hypertrophic cardiomyopathy; F17.200 Nicotine dependence, unspecified, uncomplicated
CPT/HCPCS: 80048; 84484; 85025; 93005; 99285; A4216

== ENCOUNTER 2024-04-16 02:26 | Emergency (ER) | payer SELFPAY ==
[2024-04-16 02:27] VITALS: BP 198/115; PULSE 76; RESP 25; TEMP 36.1; O2SAT 100; BMI 26.9
--- NOTE | 2024-04-16 03:10 | RAD_ITS ---
STUDY: X-RAY CHEST REASON FOR EXAM: Male, 43 years old patient with chest pain.. TECHNIQUE: PA and lateral views of the chest. COMPARISON: August 22, 2018. FINDINGS: The lungs are clear and expanded. There is no demonstrated pleural abnormality. Normal size heart. Normal mediastinum and cindy. Normal visualized pulmonary arteries. Normal visualized aortic arch and descending thoracic aorta. Normal visualized thoracic spine. Normal visualized ribs, clavicles, and shoulders. There is no demonstrated abnormality of the visualized soft tissue structures of the upper abdomen. RAD/Chest PA and Lateral IMPRESSION: No radiographic evidence of acute cardiopulmonary disease. Electronically Signed: Ava Mohan MD at 4:36 EDT ,
[2024-04-16 03:12] LABS: Absolute Lymphocyte Count 4.27 X10^3/uL (0.83-4.51); Absolute Neutrophil Count 5.5 X10^3/uL (2.0-7.7); Basophil# 0.06 X10^3/uL; Basophil% 0.5 % (0-1); Eosinophil# 0.32 X10^3/uL; Eosinophils% 2.8 % (0-5); Hematocrit 48.1 % (40-54); Hemoglobin 16.8 g/dL (13.0-16.5); Lymphocyte # 4.27 X10^3/ul (0.83-4.51); Mean Corp Hgb Conc 34.9 g/dL (32-36); Mean Corpuscular Hgb 31.7 pg (27.0-32.0); Mean Corpuscular Volume 90.8 fL (80-94); Mean Platelet Vol. 10.8 fl (6.2-12.0); Monocyte# 1.07 X10^3/uL; Monocyte% 9.5 % (0-10); NRBC Flagged by Analyzer 0 % (0-5); Neutrophil # 5.45 X10^3/uL (2.7-7.7); Neutrophil % 48.6 % (47-70); Platelet Count 217 K/mm3 (150-450); RBC Distribution Width CV 11.6 % (11.6-14.6); RBC Distribution Width SD 38.8 fl (35.1-43.9); White Blood Count 11.2 K/mm3 (4.4-11.0)
[2024-04-16] MEDS: Mag /Aluminum/Simeth WCH UDC 30 ML ORAL.SUSP PO (03:21)
[2024-04-16] MEDS: Lidocaine 2% Viscous15 ML UDC 15 ML PO (03:22)
[2024-04-16] MEDS: Famotidine 200 MG/20 ML MDV 20 MG in 0.9% Normal Saline (Pres. free 8 ML 300 MG IV (03:24)
[2024-04-16 03:26] VITALS: BP 145/90; PULSE 72; RESP 18; O2SAT 98
[2024-04-16 03:34] LABS: AST(SGOT) 18 U/L (15-37); Alanine Aminotransfer ALT/SGPT 21 U/L (16-61); Alkaline Phosphatase 85 U/L (45-117); Anion Gap 8 (5-15); BUN 13 mg/dL (7-18); BUN/Creat Ratio 11.2 RATIO (10-20); Bilirubin, Direct 0.18 mg/dL (0.00-0.30); Calcium,Total 9.4 mg/dL (8.5-10.1); Chloride 106 mmol/L (98-107); Creatinine, Serum 1.16 mg/dL (0.70-1.30); EST Glomerular Filtration Rate 73 mL/min (>60); Est Glom Filt Rate - Afr Amer 88 mL/min (>60); Estimated Creatinine Clearance 84.78 ml/min; Globulin 3.9 g/dL (2.2-4.2); Glucose 103 mg/dL (74-106); Lipase 55 U/L (13-75); Magnesium 1.9 mg/dL (1.6-2.6); Potassium 3.5 mmol/L (3.5-5.1); Protein, Total 7.9 g/dL (6.4-8.2); Sodium Level 137 mmol/L (136-145); Troponin-I HS 19 pg/mL (3.0-78.0)
[2024-04-16 04:00] VITALS: BP 145/90; PULSE 75; RESP 18; O2SAT 98
[2024-04-16] MEDS: Dicyclomine 20 MG/2 ML Vial IM (04:33)
[2024-04-16 05:00] VITALS: BP 140/90; PULSE 61; RESP 19; O2SAT 99
[2024-04-16 05:11] LABS: Troponin-I HS 8 pg/mL (3.0-78.0)
--- NOTE | 2024-04-16 05:35 | EDS_ITS ---
HPI History of Present Illness Chief Complaint: Chest Pain Informant: patient Narrative Narrative: Patient is a 43-year-old male with past medical history of paroxysmal atrial fibrillation and hypertrophic cardiomyopathy as well as hypertension. He states that he will develop a sense of spasm and pain in his upper abdomen/lower chest occurs for no apparent reason. He denies any nausea vomiting diaphoresis or shortness of breath associated with this. He states that lbyn-hea-ysvedci medications are not helping and based on his history of paroxysmal A-fib and hypertrophic cardiomyopathy he had concerns this could be cardiac in nature and therefore comes in for evaluation [facility] Medical History no medical history Home Medications ?Medication ?Instructions ?Recorded ?Last Taken ?Type famotidine 20 mg tablet (Pepcid) 20 mg PO BID 30 days #60 tabs 04/16/24 Unknown Rx methocarbamol 500 mg tablet 1,000 mg (2 x 500 mg) PO 4X/DAY 04/16/24 Unknown Rx PRN Muscle pain/spasm #56 tabs Allergy/AdvReac Type Severity Reaction Status Date / Time iodine Allergy Unknown Verified 04/16/24 02:27 venom-wasp (wasp venom) Allergy Unknown Verified 04/16/24 02:27 sotalol AdvReac Other Verified 04/16/24 02:27 Surgical History no surgical history Social History Smoking Status: Current some day smoker tobacco type: pipe ROS ROS ED Constitutional Constitutional ED: Denies chills or fever(s) Eyes Eyes: Denies blurry vision or change in vision ENT ENT ED: Denies sore throat Cardiovascular Cardiovascular: Reports chest pain; Denies palpitations or racing heartbeat Respiratory/Chest Respiratory/Chest: Denies cough or dyspnea Gastrointestinal Gastrointestinal: Reports abdominal pain; Denies diarrhea, nausea or vomiting Genitourinary Genitourinary ED: Denies dysuria Musculoskeletal Musculoskeletal: Denies myalgias Integumentary Denies rash Neurologic Neurologic: Denies headache(s) Hematologic/Lymphatic Hematologic/Lymphatic: Denies easy bleeding or easy bruising EXAM Physical Exam Const Vital Signs: 04/16/24 02:27 04/16/24 02:29 04/16/24 03:26 Temperature 97 F L Temperature Source Temporal Pulse Rate 76 72 Respiratory Rate 25 H 18 Respiratory Effort Normal Blood Pressure 198/115 H 145/90 H Blood Pressure Mean 142 108 Pulse Ox 100 98 Oxygen Delivery Method Room Air Room Air 04/16/24 04:00 04/16/24 05:00 Temperature Temperature Source Pulse Rate 75 61 Respiratory Rate 18 19 H Respiratory Effort Blood Pressure 145/90 H 140/90 H Blood Pressure Mean 108 106 Pulse Ox 98 99 Oxygen Delivery Method Room Air Room Air Positive well nourished and well developed General Appearance ED: well developed; Negative for pallor HEENT HEENT Narrative: No tongue or lip swelling no oral lesions no airway edema or compromise\ No secondary findings in the posterior pharynx to suggest infection Eyes PERRL and EOMs intact bilaterally General Eye ED: Negative for scleral icterus Neck supple and no JVD Neck Narrative: No nuchal rigidity or meningeal signs No carotid bruit Chest Wall palpation of chest normal Chest Narrative: No bony deformity or crepitance of the chest wall no reproducible pain with palpation Resp normal respiratory effort and clear to auscultation bilaterally Cardio regular rate and regular rhythm Rate: other Other Details: Heart is regular rate and rhythm Radial and carotid pulses are equal and symmetric GI non-distended and no masses GI Narrative: Abdomen is soft and nondistended with normoactive bowel sounds. Patient has mild pain on palpation in the midepigastric region without voluntary guarding or rigidity. No pulsatile mass or fluid wave. Negative Roblero sign Auscultation: normoactive bowel sounds Palpation: soft Back/Spine no CVA tenderness Extremity normal to inspection Extremity Narrative: No asymmetric edema no pitting edema negative Homans' sign bilaterally Neuro oriented x3, CN's II-XII intact bilaterally and no sensory deficits noted Sensorium / Orientation: alert Motor Exam: strength 5/5 throughout Psych mental status grossly normal Skin no rashes or lesions noted General Skin Exam: Negative for jaundice or pallor MDM MDM MDM Narrative Medical decision making narrative: Patient arrived to the ER hypertensive but has a past medical history of this and otherwise with stable vitals. He reported atypical chest pain as he described upper abdominal/lower chest that was more of a spasm in nature. Differential diagnosis is for biliary colic versus acute cholecystitis versus pancreatitis versus gastritis versus acute coronary syndrome versus cardiac dysrhythmia. Secondary to this basic labs were obtained as well as a chest x- ray. EKG showed no signs of dysrhythmia or ischemic changes and chest x-ray revealed no acute lung pathology. Labs revealed no elevation to the troponin and his liver enzymes were normal going against biliary colic/acute cholecystitis and lipase was also normal going against acute pancreatitis. Patient was given a GI cocktail as there was concern as symptoms were more gastritis in nature and did have improvement of symptoms. Therefore at this time as troponins are downtrending chest x-ray reveals no acute lung pathology and laboratory studies do not suggest this is a biliary colic/acute cholecystitis or pancreatitis because I do not feel there is need for further workup and is otherwise safe for discharge with symptomatic care History & Record Review Discussion w/independent historian: Patient Lab Data Attestation: I reviewed the patient's lab results. Labs: Laboratory Results - last 24 hr 04/16/24 04/16/24 02:33 04:37 WBC 11.2 H RBC 5.30 Hgb 16.8 H Hct 48.1 MCV 90.8 MCH 31.7 MCHC 34.9 RDW Std Deviation 38.8 RDW Coeff of Tereza 11.6 Plt Count 217 MPV 10.8 Immature Gran % (Auto) 0.600 Neut % (Auto) 48.6 Lymph % (Auto) 38.0 [place] % (Auto) 9.5 Eos % (Auto) 2.8 Baso % (Auto) 0.5 Absolute Neuts (auto) 5.5 Absolute Lymphs (auto) 4.27 Nucleated RBC % 0 Sodium 137 Potassium 3.5 Chloride 106 Carbon Dioxide 23.0 Anion Gap 8 BUN 13 Creatinine 1.16 Estim Creat Clear Calc 84.78 Est GFR (MDRD) Af Amer 88 Est GFR (MDRD) Non-Af 73 BUN/Creatinine Ratio 11.2 Glucose 103 Calcium 9.4 Magnesium 1.9 Total Bilirubin 0.50 Direct Bilirubin 0.18 AST 18 ALT 21 Alkaline Phosphatase 85 Troponin I High Sens 19 8 Total Protein 7.9 Albumin 4.0 Globulin 3.9 Lipase 55 Radiography Diagnostic Testing: Clinical Impression(s) from Imaging Studies Chest X-Ray 04/16/24 03:10 IMPRESSION: No radiographic evidence of acute cardiopulmonary disease. Electronically Signed: Ava Mohan MD at 4:36 EDT , Chest x-ray as interpreted by the emergency medicine physician reveals no acute infiltrate pneumothorax or pleural effusion or widening of the mediastinum Discharge Plan Triage Chief Complaint: Chest Pain ED Provider: Blaise Pitt Dx/Rx/DC Orders Clinical Impression: Nonspecific chest pain, Hypertension, Paroxysmal atrial fibrillation, Gastritis Instructions: ED Chest Pain, Uncertain Cause, ED Hypertension, To Be Confirmed Prescriptions: New famotidine [Pepcid] 20 mg tablet 20 mg PO BID 30 Days Qty: 60 0RF methocarbamol 500 mg tablet 1,000 mg PO 4X/DAY PRN (Reason: Muscle pain/spasm) Qty: 56 0RF Primary Care Provider: Reynaldo August Referrals: Reynaldo August DO [Primary Care Provider] - Print Language: Danish Disposition Disposition: Home, Self Care Discharge Date/Time: 04/16/24 05:43
[2024-04-16 05:43] VITALS: BP 140/90; PULSE 78; RESP 14; TEMP 36.9; O2SAT 99
== END 2024-04-16 05:43 | disposition home or self-care (01) ==
PROVIDERS: Emergency Provider Emergency Medicine; PCP Family Medicine; Visit Provider Emergency Medicine
DX: R07.9 Chest pain, unspecified (principal); I48.0 Paroxysmal atrial fibrillation; I42.2 Other hypertrophic cardiomyopathy; K29.70 Gastritis, unspecified, without bleeding; F17.200 Nicotine dependence, unspecified, uncomplicated; I10 Essential (primary) hypertension
CPT/HCPCS: 71046; 80048; 80076; 83690; 83735; 84484; 85025; 93005; 96372; 96374; 99284; A4216; J3490

== ENCOUNTER 2024-05-26 18:54 | Emergency (ER) | payer SELFPAY ==
[2024-05-26 18:54] VITALS: BP 191/115; PULSE 98; RESP 18; TEMP 36.6; O2SAT 99; BMI 26.8
--- NOTE | 2024-05-26 19:53 | EDS_ITS ---
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 Multiple call outs to his home. There is concerned that he threatened neighbors from a distance. Reported there was standoff with the male were patient told police they had to kill him to take him anywhere. Patient states last stress with finance. He has 5 kids. He is unable to provide for them. He had a handgun and a low rifle in the garage. He states he had some alcohol today. He admits to smoking marijuana. After police left, he states he was not suicidal. He denies any diagnosis of depression or bipolar. PFSH PFSH Home Medications ?Medication ?Instructions ?Recorded ?Last Taken ?Type famotidine 20 mg tablet (Pepcid) 20 mg PO BID 30 days #60 tabs 04/16/24 Unknown Rx methocarbamol 500 mg tablet 1,000 mg (2 x 500 mg) PO 4X/DAY 04/16/24 Unknown Rx PRN Muscle pain/spasm #56 tabs Allergy/AdvReac Type Severity Reaction Status Date / Time iodine Allergy Unknown Verified 05/26/24 18:54 venom-wasp (wasp venom) Allergy Unknown Verified 05/26/24 18:54 sotalol AdvReac Other Verified 05/26/24 18:54 Social History Smoking Status: Light Smoker (<10/day) ROS [facility] ED Constitutional Constitutional ED: Denies chills, fever(s) or sweats Eyes Eyes: Denies change in vision ENT ENT ED: Denies dysphagia or sore throat Cardiovascular Cardiovascular: Denies chest pain, leg edema, palpitations or racing heartbeat Respiratory/Chest Respiratory/Chest: Denies cough, dyspnea or dyspnea on exertion Gastrointestinal Gastrointestinal: Denies abdominal pain, diarrhea, nausea or vomiting Genitourinary Genitourinary ED: Denies dysuria, hematuria or urinary frequency Musculoskeletal Musculoskeletal: Denies back pain, extremity pain or neck pain Integumentary Denies rash or wounds Neurologic Neurologic: Denies headache(s), paresthesias or weakness Psychiatric Psychiatric: Denies suicidal ideation or suicidal thoughts EXAM Physical Exam Const Vital Signs: 05/26/24 18:54 Temperature 98 F Temperature Source Temporal Pulse Rate 98 Respiratory Rate 18 Blood Pressure 191/115 H Blood Pressure Mean 140 Pulse Ox 99 Oxygen Delivery Method Room Air Positive well nourished and well developed General Appearance ED: well developed and NAD HEENT Reports moist mucous membranes normocephalic and atraumatic Eyes EOMs intact bilaterally and conjunctivae normal General Eye ED: Yes normal appearance of both eyes Neck no lymphadenopathy and supple General: Negative for tenderness Chest Wall Chest: Negative for tenderness Resp normal respiratory effort and normal air movement Effort and Inspection: symmetric chest movement; Negative for respiratory distress Cardio regular rate, regular rhythm and no murmurs Peripheral Pulses: pulses 2+ throughout GI normal to inspection, nondistended, normoactive bowel sounds and non-tender Palpation: Negative for guarding or rebound tenderness present Back/Spine no CVA tenderness and no thoracic nor lumbar tenderness Extremity normal to inspection General Extremety ED: Negative for edema or tenderness General Extremity: Negative for edema Neuro oriented x3 and no sensory deficits noted Sensorium / Orientation: awake and alert Psych Psych Narrative: Currently denying suicidal homicidal ideations. However agitated at times. Skin no rashes or lesions noted and no wounds MDM MDM MDM Narrative Medical decision making narrative: Interventions / MDM: Differential diagnosis: Depression, suicidal ideation, alcoholism Diagnosis considered but do not suspect: N/A My EKG interpretation: N/A Imaging independently reviewed and interpreted by myself: N/A External documents reviewed: N/A Test considered but not ordered:N/A ED course: Patient brought in by police with pink slip. Per the report for concerns of him threatened himself and others. Access to guns. At times to be agitated or conversation. Denies any psychiatric diagnoses. Discussed with patient will need clearance labs and crisis evaluation. She is in agreement at this time. 2330: Interim patient requested Ativan, felt this appropriate with his initial a gitation. Alcohol level 104 down to 40, drug screen positive for THC and cocaine. And no chest pains. He is medically cleared. Will await crisis evaluation. 2350: Crisis currently here to evaluate the patient. I spoke with him and he will evaluate the patient for disposition plans. Patient signed out to night physician. Re-evaluation: stable Disposition discussed with patient/family/significant other: Case discussed with consulting clinician: Crisis counselor This note was generated with [employer] dictation software. It may contain incorrect words, spelling, and punctuation that were not noted in checking the note before signing. Lab Data Attestation: I reviewed the patient's lab results. Labs: Laboratory Results - last 24 hr 05/26/24 05/26/24 05/26/24 19:54 19:57 22:59 WBC 10.3 RBC 5.52 Hgb 17.5 H Hct 50.9 MCV 92.2 MCH 31.7 MCHC 34.4 RDW Std Deviation 39.5 RDW Coeff of Tereza 11.6 Plt Count 225 MPV 10.6 Immature Gran % (Auto) 0.400 Neut % (Auto) 83.9 H Lymph % (Auto) 9.5 L [place] % (Auto) 5.5 Eos % (Auto) 0.3 Baso % (Auto) 0.4 Absolute Neuts (auto) 8.7 H Absolute Lymphs (auto) 0.98 Nucleated RBC % 0 Sodium 140 Potassium 3.6 Chloride 108 H Carbon Dioxide 25.0 Anion Gap 8 BUN 8 Creatinine 1.30 Estim Creat Clear Calc 75.65 Est GFR (MDRD) Af Amer 77 Est GFR (MDRD) Non-Af 64 BUN/Creatinine Ratio 6.2 L Glucose 105 Calcium 10.0 Urine Opiates Screen NEGATIVE Urine Methadone Screen NEGATIVE Ur Barbiturates Screen NEGATIVE Ur Phencyclidine Scrn NEGATIVE Ur Amphetamines Screen NEGATIVE MDMA (Ecstasy) Screen NEGATIVE U Benzodiazepines Scrn NEGATIVE Urine Cocaine Screen POSITIVE H U Cannabinoids Screen POSITIVE H Ur Drug Screen Comment Ethyl Alcohol 104.0 40.0 Discharge Plan Triage Chief Complaint: Suicidal ED Provider: David Strong Dx/Rx/DC Orders Clinical Impression: Alcoholism, Depression, Suicidal ideation Prescriptions: No Action famotidine [Pepcid] 20 mg tablet 20 mg PO BID 30 Days Qty: 60 0RF methocarbamol 500 mg tablet 1,000 mg PO 4X/DAY PRN (Reason: Muscle pain/spasm) Qty: 56 0RF Primary Care Provider: Reynaldo August Referrals: Reynaldo August DO [Primary Care Provider] - Print Language: Uzbek
[2024-05-26 20:29] LABS: Absolute Lymphocyte Count 0.98 X10^3/uL (0.83-4.51); Absolute Neutrophil Count 8.7 X10^3/uL (2.0-7.7); Basophil# 0.04 X10^3/uL; Basophil% 0.4 % (0-1); Eosinophil# 0.03 X10^3/uL; Eosinophils% 0.3 % (0-5); Hematocrit 50.9 % (40-54); Hemoglobin 17.5 g/dL (13.0-16.5); Lymphocyte # 0.98 X10^3/ul (0.83-4.51); Lymphocyte % 9.5 % (19-41); Mean Corp Hgb Conc 34.4 g/dL (32-36); Mean Corpuscular Hgb 31.7 pg (27.0-32.0); Mean Corpuscular Volume 92.2 fL (80-94); Mean Platelet Vol. 10.6 fl (6.2-12.0); Monocyte# 0.57 X10^3/uL; Monocyte% 5.5 % (0-10); NRBC Flagged by Analyzer 0 % (0-5); Neutrophil # 8.65 X10^3/uL (2.7-7.7); Neutrophil % 83.9 % (47-70); Platelet Count 225 K/mm3 (150-450); RBC Distribution Width CV 11.6 % (11.6-14.6); RBC Distribution Width SD 39.5 fl (35.1-43.9); Red Blood Count 5.52 M/mm3 (4.6-6.2); White Blood Count 10.3 K/mm3 (4.4-11.0)
[2024-05-26 20:45] LABS: Anion Gap 8 (5-15); BUN 8 mg/dL (7-18); BUN/Creat Ratio 6.2 RATIO (10-20); Chloride 108 mmol/L (98-107); EST Glomerular Filtration Rate 64 mL/min (>60); Est Glom Filt Rate - Afr Amer 77 mL/min (>60); Estimated Creatinine Clearance 75.65 ml/min; Glucose 105 mg/dL (74-106); Potassium 3.6 mmol/L (3.5-5.1); Sodium Level 140 mmol/L (136-145)
[2024-05-26 20:58] LABS: Amphetamine Urine VISTA NEGATIVE (<1000 ng/mL); Barbiturate Urine VISTA NEGATIVE (< 200 ng/mL); Benzodiazepine Urine VISTA NEGATIVE (< 200 ng/mL); Cocaine Urine VISTA POSITIVE (< 300 ng/mL); Ecstacy Urine VISTA NEGATIVE (< 500 ng/mL); Methadone Urine VISTA NEGATIVE (< 300 ng/mL); PCP Urine VISTA NEGATIVE (< 25 ng/mL); THC Urine VISTA POSITIVE (< 50 ng/mL); Vista UDS pH Range 5
[2024-05-26] MEDS: LORazepam 1 MG Tablet PO (21:45)
[2024-05-27] MEDS: LORazepam 1 MG Tablet PO ×2 (02:43→07:37)
[2024-05-27 04:29] VITALS: BP 140/123; PULSE 92; RESP 18; TEMP 36.8; O2SAT 98
--- NOTE | 2024-05-27 08:53 | EKG12_ITS ---
Test Reason : PLACMENT- Blood Pressure : */* mmHG Vent. Rate : 75 BPM Atrial Rate : 75 BPM P-R Int : 140 ms QRS Dur : 94 ms QT Int : 386 ms P-R-T Axes : 54 61 -30 degrees QTcB Int : 431 ms Normal sinus rhythm T wave abnormality, consider inferior ischemia Abnormal ECG Confirmed by KALANI MCDONNELL, NAOMI ([id number]), editor managing director DAIANA ALVES ([id number]) on 05/28/2024 8:19:40 AM Referred By: Confirmed By: NAOMI URIARTE MD
--- NOTE | 2024-05-27 09:07 | NURSING ---
PINK SLIP FAXED TO [facility]
--- NOTE | 2024-05-27 09:17 | NURSING ---
FAXED EKG TO [facility]
[2024-05-27 09:33] LABS: CPK Total, Creatine Kinase 96 U/L (39-308)
--- NOTE | 2024-05-27 09:35 | NURSING ---
FAXED CPK TO [facility]
--- NOTE | 2024-05-27 09:51 | ED.RN ---
MOTHER REPEATEDLY STATING I NEED TO BE LISTED ON HIS MEDICAL RECORD. REGISTRATION AWARE AND WILL SPEAK WITH HER.
--- NOTE | 2024-05-27 09:52 | ED.RN ---
CHECKED CONTACTS, MOTHER IS ALREADY LISTED CONTACT.
--- NOTE | 2024-05-27 10:28 | NURSING ---
[facility] IN ROOM
[2024-05-27 10:56] VITALS: BP 156/94; PULSE 76; RESP 14; TEMP 36.6; O2SAT 92
--- NOTE | 2024-05-27 10:58 | ED.RN ---
ATTEMPTED TO CALL REPORT TO [phone]. CALL INTAKE AT [phone], INTAKE STATED IF THEY ARE NOT ANSWERING, JUST SEND THE PT. I CLARIFIED THAT IT WAS OK TO SEND PT WITHOUT REPORT, PER INTAKE YES IF THEY ARE NOT ANSWERING>
[2024-05-27 12:00] VITALS: BP 154/78; PULSE 78; RESP 16; O2SAT 98
== END 2024-05-27 13:02 ==
PROVIDERS: Emergency Medicine; Emergency Provider Emergency Medicine; PCP Family Medicine; Visit Provider Emergency Medicine
DX: F32.A Depression, unspecified (principal); F10.20 Alcohol dependence, uncomplicated; R45.851 Suicidal ideations; F17.290 Nicotine dependence, other tobacco product, uncomplicated
CPT/HCPCS: 80048; 80307; 82077; 82550; 85025; 93005; 99284; A4216